=== PATIENT | male | born 1935 | race Caucasian/White ===

== ENCOUNTER → 2022-04-27 13:53 | Outpatient (BNVA) | payer MEDICARE, MEDICAID, SELFPAY | PROVIDERS: PCP Internal Medicine; Visit Provider Psychiatry & Neurology Neurology | DX: R20.0 Anesthesia of skin (principal); R20.2 Paresthesia of skin; M48.061 Spinal stenosis, lumbar region without neurogenic claudication | CPT/HCPCS: 99202 ==

== ENCOUNTER 2022-07-20 18:05 | Inpatient (IN) | payer MEDICARE, MEDICAID, SELFPAY ==
--- NOTE | ~2022-07-20 | CT_ITS ---
EXAMINATION: CT HEAD WITHOUT CONTRAST CT CERVICAL SPINE WITHOUT CONTRAST CLINICAL INFORMATION: Dizziness. Fall. COMPARISON: None available. TECHNIQUE: Contiguous axial imaging was performed from the skull base to vertex without intravenous administration of contrast. Contiguous axial imaging was performed from the upper chest through the skull base without intravenous administration of contrast. Coronal and sagittal reformats were obtained at the acquisition workstation. This CT examination was performed using dose optimization techniques as appropriate, variously including the following: *Automated exposure control. *Adjustment of mA and/or kV according to patient size (this includes techniques or standardized protocols for targeted exams where dose is matched to indication/reason for exam; i.e. extremities or head). *Use of iterative reconstruction technique. DLP: 1155 mGy-cm FINDINGS: Head: There is no evidence of acute intracranial hemorrhage or edematous territorial infarction. Mccollum-white matter differentiation is preserved. A few foci of hypoattenuation in the periventricular and deep white matter are consistent with mild microangiopathy. Proportional prominence of the ventricles and sulcal spaces without evidence of obstructive hydrocephalus. No abnormal mass effect or midline shift. No extra-axial fluid collections. No acute soft tissue or osseous abnormalities. Complete opacification of the left sphenoid air cell with hyperostotic park. Moderate polypoid mucosal thickening of the left maxillary sinus. Mild mucosal thickening of the remaining paranasal sinuses. Moderate leftward nasal septal deviation. The mastoid air cells and middle ear cavities are clear. 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 Left-sided lens extraction. Cervical Spine: The atlantooccipital and atlantoaxial articulations remain well aligned. Mild degenerative anterolisthesis of C2 on C3. Mild degenerative retrolisthesis of C3 and C4. Degenerative anterolistheses of C6-T1. No evidence of acute fracture or subluxation. Advanced degenerative disc disease at all cervical levels. The vertebral body heights are maintained. Facet and uncovertebral joint arthropathy leads to osseous encroachment on the neural foramina from C2-C6. There is no prevertebral soft tissue swelling. The thyroid gland and remaining cervical soft tissues are normal in appearance. The lung apices demonstrate no abnormalities. CT/CT cervical spine wo IV con IMPRESSION: 1. No evidence of acute intracranial hemorrhage or edematous territorial infarction. Mild underlying microangiopathy and generalized cerebral volume loss. 2. No evidence of acute fracture or traumatic subluxation of the cervical spine. Advanced multilevel degenerative spondyloarthropathy of the cervical spine.
--- NOTE | ~2022-07-20 | XR_ITS ---
EXAMINATION: XR CHEST CLINICAL INFORMATION: Dizziness and cough COMPARISON: None TECHNIQUE: 2 views of the chest were obtained. FINDINGS: Heart and pulmonary vessels appear normal. No infiltrates, effusions or worrisome lung masses are seen. Calcification adjacent to the right mid lateral chest wall may represent calcified plaque or possibly be related to old rib fracture. Degenerative changes are noted in the spine. XR/XR chest 2V IMPRESSION: No acute intrathoracic disease.
--- NOTE | ~2022-07-20 | CT_ITS ---
EXAMINATION: CT ABDOMEN AND PELVIS WITHOUT CONTRAST CLINICAL INFORMATION: Dizziness and black stools COMPARISON: Chest radiograph earlier today. Renal ultrasound 03/16/2022 CT abdomen pelvis 07/29/2020 TECHNIQUE: Multidetector volumetric imaging was performed from the superior aspect of the liver through the pubic symphysis. Sagittal and coronal reformatted images were obtained on the technologist's workstation. This CT examination was performed using dose optimization techniques as appropriate, variously including the following: *Automated exposure control *Adjustment of mA and/or kV according to patient size (this includes techniques or standardized protocols for targeted exams where dose is matched to indication/reason for exam; i.e. extremities or head) *Use of iterative reconstruction technique DLP: 583 mGy-cm FINDINGS: LUNG BASES: Large calcified granuloma noted at the right lung base laterally with an additional infrahilar right-sided calcified granuloma. No suspicious lung masses. No effusions or infiltrates. LIVER, GALLBLADDER, AND BILIARY TREE: The liver is normal in size, shape, and attenuation. No focal hepatic lesion or biliary ductal dilatation is present. The gallbladder is unremarkable with no evidence of radiopaque gallstones, gallbladder wall thickening, or obvious pericholecystic inflammatory changes. PANCREAS: Unremarkable. SPLEEN: Unremarkable. ADRENAL GLANDS: Unremarkable. KIDNEYS AND URETERS: The kidneys are normal in size, shape, and attenuation. Multiple bilateral renal masses are seen most of which represent what appear to BE cysts that are slightly hyperattenuating. Multiple peripheral fatty masses are present as well suggestive of angiomyolipomas. Compared to 07/29/2020 CT, there has been no significant interval change. Some of the perirenal masses, do not communicate with the kidneys and these are new suggestive of possible adenopathy. No hydronephrosis, hydroureter, or calculi seen. No perinephric stranding. BLADDER: Unremarkable. GASTROINTESTINAL TRACT: There are colonic diverticula present without diverticulitis The small and large bowel are otherwise unremarkable. The appendix is not seen but there is no evidence of appendicitis. ABDOMINAL WALL: No significant hernia is appreciated. LYMPH NODES: No retroperitoneal lymphadenopathy. Please see discussion above concerning perirenal soft tissue densities which do not communicate with the renal parenchyma. VASCULAR: Calcific plaque without aneurysms PELVIC VISCERA: There is marked BPH. Seminal vesicles normal. OSSEOUS STRUCTURES: Severe degenerative changes present throughout the spine. Mild grade 1 anterolisthesis L4 upon L5. No bony destructive lesions. CT/CT abdomen pelvis wo IV con IMPRESSION: 1. A cause for the patient's black stools and black stools has not been found. 2. Incidental note made of: 3. 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 4. Perirenal soft tissue densities which do not communicate with the renal parenchyma. These could represent adenopathy, slightly increased when compared to prior. 5. Marked BPH. 6. Severe degenerative changes in the spine. Fleischner guidelines were followed.
--- NOTE | 2022-07-20 19:11 | ED.GENADULT ---
HPI - General Adult General Chief complaint: General Medical Stated complaint: blackend stool,dizziness sent from urgent care Time Seen by Provider: 07/20/22 21:34 Related Data Home Medications Medication Instructions Recorded Confirmed atorvastatin 80 mg tablet 1 tab PO DAILY 07/20/22 07/20/22 isosorbide mononitrate 30 mg 1 tab PO DAILY 07/20/22 07/20/22 tablet,extended release 24 hr metoprolol succinate 25 mg 1 tab PO DAILY 07/20/22 07/20/22 tablet,extended release 24 hr metoprolol succinate 25 mg 1 tab PO DAILY 07/20/22 07/20/22 tablet,extended release 24 hr tamsulosin 0.4 mg capsule 1 cap PO DAILY 07/20/22 07/20/22 Previous Rx's Medication Instructions Recorded omeprazole 40 mg capsule,delayed 40 mg PO BID #90 caps 07/23/22 release Allergies Allergy/AdvReac Type Severity Reaction Status Date / Time No Known Allergies Allergy Verified 07/20/22 19:15 [facility] Past Medical History Medical History (Updated 07/22/22 @ 10:33 by Bridger Blackburn MD) CAD (coronary artery disease) Surgical History (Updated 07/22/22 @ 10:33 by Bridger Blackburn MD) History of knee replacement Family History Family History (Updated 07/21/22 @ 01:04 by Hattie Conley MD) Other No family history of coronary artery disease Social History Social History (Updated 07/21/22 @ 01:04 by Hattie Conley MD) Household Members: Spouse Housing: House Do you presently have visiting nurse or other home services: No Alcohol intake: never Patient Tobacco Use Status: Never used Tobacco service: No Physical Exam ED Vital Signs: BMI result Body Mass Index 29.1 Course Course Course Narrative: RME-19:12PM 82yoM c PMHx of PR with stent placement presenting to the ED c dizziness, coughing/sob x 1 week, decreased appetite and black stools x 2 days. Last week fell in drive way after he slipped on sopmething in the drive way. Denies head injury or LOC. Had right shoulder now is gone from that fall. Went to Urgent care and sent here for further evaluation treatment. Pt is on baby aspirin and Brilinta. Denies CP. Plan: COVID/RSV/flu, EKG, chest x-ray, lab and CT scan abdomen pelvis all ordered at this time. Patient stable to go back to waiting room to be evaluated in the ED. Medications Administered Discontinued Medications Generic Name Dose Route Start Last Admin Trade Name Freq PRN Reason Stop Dose Admin Al Hydroxide/Mg Hydroxide 30 ml 07/20/22 21:56 07/20/22 22:46 Magnesium Hydrox/Alum Hydrox 30 Ml Oral.Susp PO 07/20/22 21:57 30 ml ONCE ONE Administration Atorvastatin Calcium 80 mg 07/21/22 21:00 07/22/22 19:48 Atorvastatin Calcium 80 Mg Tablet PO 80 mg BEDTIME RAMILA Administration Lactated Ringer's 1,000 mls @ 100 mls/hr 07/21/22 01:15 07/22/22 19:48 Lr IVCONT Not Given .Q10H RAMILA Isosorbide Mononitrate 30 mg 07/21/22 09:00 07/23/22 09:16 Isosorbide Mononitrate 30 Mg Tab.Er.24h PO 30 mg DAILY RAMILA Administration Protocol Melatonin 6 mg 07/21/22 21:01 07/21/22 21:13 Melatonin 3 Mg Tablet PO 6 mg BEDTIME PRN Administration Insomnia Metoprolol Succinate 25 mg 07/21/22 01:45 07/23/22 09:17 Metoprolol Succinate Er 25 Mg Tab.Er.24h PO 25 mg DAILY RAMILA Administration Protocol Pantoprazole Sodium 40 mg 07/20/22 21:56 07/20/22 22:46 Pantoprazole Sodium 40 Mg/10 Ml Vial IVPUSH 07/20/22 21:57 40 mg ONCE ONE Administration Pantoprazole Sodium 40 mg 07/21/22 06:30 07/23/22 05:46 Pantoprazole Sodium 40 Mg/10 Ml Vial IVPUSH 40 mg BID@0630,1630 RAMILA Administration Sodium Chloride 3 ml 07/21/22 00:00 07/23/22 09:17 0.9 % Sodium Chloride Flush 3 Ml Syringe IVFLUSH 3 ml QSHIFT RAMILA Administration Tamsulosin HCl 0.4 mg 07/21/22 09:00 07/23/22 09:16 Tamsulosin Hcl 0.4 Mg Capsule PO 0.4 mg DAILY RAMILA Administration Trazodone HCl 50 mg 07/21/22 00:45 07/21/22 01:14 Trazodone Hcl 50 Mg Tablet PO 07/21/22 00:46 50 mg ONCE ONE Administration Medical Decision Making Lab Data 07/23/22 06:00 07/21/22 07:00 Labs: Lab Results 07/20/22 07/20/22 07/20/22 Range/Units 19:37 19:37 19:37 WBC 12.4 H (4.8-10.8) X10*3/uL RBC 4.27 L (4.60-5.80) X10*6/uL Hgb 11.5 L (14.0-18.0) g/dl Hct 36.2 L (42.0-52.0) % MCV 84.8 (80.0-98.0) fL MCH 26.9 L (27.0-33.0) pg MCHC 31.8 (31.0-36.0) g/dl RDW 14.8 (11.0-16.0) % Plt Count 319 (160-400) X10*3/uL MPV 11.3 (9.4-12.4) fL Immature Gran % (Auto) 3.6 H (0.0-0.4) % Neut % (Auto) 71.1 (45-73) % Lymph % (Auto) 12.4 L (20-40) % [place] % (Auto) 11.8 H (2-11) % Eos % (Auto) 0.8 (0-4) % Baso % (Auto) 0.3 (0-2) % Lymph # (Auto) 1.5 (1.2-4.9) X10*3/uL [place] # (Auto) 1.5 H (0.1-1.2) X10*3/uL Eos # (Auto) 0.1 (0.0-0.4) X10*3/uL Baso # (Auto) 0.0 (0.0-0.2) X10*3/uL Abs Immat Gran (auto) 0.44 H (0.00-0.03) X10*3/uL Absolute Neuts (auto) 8.8 H (2.0-8.3) x10*3/uL Absolute Nucleated RBC 0.000 (0.0-0.012) X10*3/uL Nucleated RBC % (auto) 0.0 (0.0-0.2) /100WBC PT 12.6 (10.0-13.1) SEC INR 1.1 (0.9-1.1) Sodium 138 (135-145) mmol/L Potassium 4.4 (3.3-5.1) mmol/L Chloride 106 (96-108) mmol/L Carbon Dioxide 22 (22-29) mmol/L Anion Gap 14 (12-20) BUN 63 H (9-16) mg/dL Creatinine 1.37 (0.5-1.4) mg/dL Estim Creat Clear Calc 37.5 Estimated GFR 49 Random Glucose 113 (60-115) mg/dL Calcium 9.4 (8.4-10.2) mg/dL Magnesium 1.8 (1.6-2.6) mg/dL Total Bilirubin 0.8 (0.0-1.0) mg/dL AST 20 (5-37) U/L ALT 24 (0-40) U/L Alkaline Phosphatase 69 (39-117) U/L Troponin I High Sens (<3.5-35.0) ng/L Total Protein 6.7 (6.5-8.0) g/dL Albumin 3.5 (3.5-5.0) g/dL Urine Color Urine Appearance Urine pH (5.0-9.0) Ur Specific [place] (1.005-1.025) Urine Protein (Neg-Trace) mg/dL Urine Glucose (UA) (Negative) mg/dL Urine Ketones (Negative) mg/dL Urine Blood (Negative) Urine Nitrite (Negative) Ur Leukocyte Esterase (Negative) Stool Occult Blood (NEGATIVE) Influenza Type A (PCR) (Negative) Influenza Type B (PCR) (Negative) RSV RNA Qual (PCR) (Negative) SARS-CoV-2 RNA (RT-PCR) (Negative) Blood Type Antibody Screen Crossmatch 07/20/22 07/20/22 07/20/22 Range/Units 19:37 19:37 19:37 WBC (4.8-10.8) X10*3/uL RBC (4.60-5.80) X10*6/uL Hgb (14.0-18.0) g/dl Hct (42.0-52.0) % MCV (80.0-98.0) fL MCH (27.0-33.0) pg MCHC (31.0-36.0) g/dl RDW (11.0-16.0) % Plt Count (160-400) X10*3/uL MPV (9.4-12.4) fL Immature Gran % (Auto) (0.0-0.4) % Neut % (Auto) (45-73) % Lymph % (Auto) (20-40) % [place] % (Auto) (2-11) % Eos % (Auto) (0-4) % Baso % (Auto) (0-2) % Lymph # (Auto) (1.2-4.9) X10*3/uL [place] # (Auto) (0.1-1.2) X10*3/uL Eos # (Auto) (0.0-0.4) X10*3/uL Baso # (Auto) (0.0-0.2) X10*3/uL Abs Immat Gran (auto) (0.00-0.03) X10*3/uL Absolute Neuts (auto) (2.0-8.3) x10*3/uL Absolute Nucleated RBC (0.0-0.012) X10*3/uL Nucleated RBC % (auto) (0.0-0.2) /100WBC PT (10.0-13.1) SEC INR (0.9-1.1) Sodium (135-145) mmol/L Potassium (3.3-5.1) mmol/L Chloride (96-108) mmol/L Carbon Dioxide (22-29) mmol/L Anion Gap (12-20) BUN (9-16) mg/dL Creatinine (0.5-1.4) mg/dL Estim Creat Clear Calc Estimated GFR Random Glucose (60-115) mg/dL Calcium (8.4-10.2) mg/dL Magnesium (1.6-2.6) mg/dL Total Bilirubin (0.0-1.0) mg/dL AST (5-37) U/L ALT (0-40) U/L Alkaline Phosphatase (39-117) U/L Troponin I High Sens 7.0 (<3.5-35.0) ng/L Total Protein (6.5-8.0) g/dL Albumin (3.5-5.0) g/dL Urine Color Yellow Urine Appearance Clear Urine pH 5.5 (5.0-9.0) Ur Specific [place] 1.020 (1.005-1.025) Urine Protein Negative (Neg-Trace) mg/dL Urine Glucose (UA) Negative (Negative) mg/dL Urine Ketones Negative (Negative) mg/dL Urine Blood Negative (Negative) Urine Nitrite Negative (Negative) Ur Leukocyte Esterase Negative (Negative) Stool Occult Blood (NEGATIVE) Influenza Type A (PCR) NEGATIVE (Negative) Influenza Type B (PCR) NEGATIVE (Negative) RSV RNA Qual (PCR) NEGATIVE (Negative) SARS-CoV-2 RNA (RT-PCR) POSITIVE A (Negative) Blood Type Antibody Screen Crossmatch 07/20/22 07/20/22 Range/Units 21:47 22:48 WBC (4.8-10.8) X10*3/uL RBC (4.60-5.80) X10*6/uL Hgb (14.0-18.0) g/dl Hct (42.0-52.0) % MCV (80.0-98.0) fL MCH (27.0-33.0) pg MCHC (31.0-36.0) g/dl RDW (11.0-16.0) % Plt Count (160-400) X10*3/uL MPV (9.4-12.4) fL Immature Gran % (Auto) (0.0-0.4) % Neut % (Auto) (45-73) % Lymph % (Auto) (20-40) % [place] % (Auto) (2-11) % Eos % (Auto) (0-4) % Baso % (Auto) (0-2) % Lymph # (Auto) (1.2-4.9) X10*3/uL [place] # (Auto) (0.1-1.2) X10*3/uL Eos # (Auto) (0.0-0.4) X10*3/uL Baso # (Auto) (0.0-0.2) X10*3/uL Abs Immat Gran (auto) (0.00-0.03) X10*3/uL Absolute Neuts (auto) (2.0-8.3) x10*3/uL Absolute Nucleated RBC (0.0-0.012) X10*3/uL Nucleated RBC % (auto) (0.0-0.2) /100WBC PT (10.0-13.1) SEC INR (0.9-1.1) Sodium (135-145) mmol/L Potassium (3.3-5.1) mmol/L Chloride (96-108) mmol/L Carbon Dioxide (22-29) mmol/L Anion Gap (12-20) BUN (9-16) mg/dL Creatinine (0.5-1.4) mg/dL Estim Creat Clear Calc Estimated GFR Random Glucose (60-115) mg/dL Calcium (8.4-10.2) mg/dL Magnesium (1.6-2.6) mg/dL Total Bilirubin (0.0-1.0) mg/dL AST (5-37) U/L ALT (0-40) U/L Alkaline Phosphatase (39-117) U/L Troponin I High Sens (<3.5-35.0) ng/L Total Protein (6.5-8.0) g/dL Albumin (3.5-5.0) g/dL Urine Color Urine Appearance Urine pH (5.0-9.0) Ur Specific [place] (1.005-1.025) Urine Protein (Neg-Trace) mg/dL Urine Glucose (UA) (Negative) mg/dL Urine Ketones (Negative) mg/dL Urine Blood (Negative) Urine Nitrite (Negative) Ur Leukocyte Esterase (Negative) Stool Occult Blood POSITIVE (NEGATIVE) Influenza Type A (PCR) (Negative) Influenza Type B (PCR) (Negative) RSV RNA Qual (PCR) (Negative) SARS-CoV-2 RNA (RT-PCR) (Negative) Blood Type O Positive Antibody Screen NEGATIVE Crossmatch See Detail Discharge Plan Discharge Clinical Impression: Melena, Dizziness, COVID-19 virus infection Patient Disposition: Admitted As Inpatient Discharge Date/Time: 07/21/22 17:51
[2022-07-20 19:12] VITALS: BP 134/54; PULSE 99; RESP 16; TEMP 36.5; O2SAT 96; BMI 29.1
--- NOTE | 2022-07-20 19:15 | ECG_ITS ---
Test Reason : DIZZINESS Blood Pressure : / mmHG Vent. Rate : 097 BPM Atrial Rate : 097 BPM P-R Int : 160 ms QRS Dur : 084 ms QT Int : 356 ms P-R-T Axes : 034 040 039 degrees QTc Int : 452 ms Normal sinus rhythm cannot exclude old inferior infarct Abnormal ECG No previous ECGs available Referred By: Yasmine Rebolledo Electronically Signed By:NANNETTE DELACRUZ
[2022-07-20 19:44] LABS: MANUAL DIFF FLAG NO
[2022-07-20 19:46] LABS: Appearance Urine Clear; Color Urine Yellow; Glucose Urine UA Negative (Negative); Leukocyte Esterase Urine Negative (Negative); Nitrite Urine Negative (Negative); PH 5.5 (5.0-9.0); Urine Blood Negative (Negative); Urine Ketones Negative (Negative); Urine Protein Negative (Neg-Trace)
[2022-07-20 19:50] LABS: INTERNATIONAL NORM RATIO 1.1 (0.9-1.1); Prothrombin Time 12.6 SEC (10.0-13.1)
[2022-07-20 19:56] LABS: Basophils Percent Auto 0.3 % (0-2); Eosinophils Absolute Auto 0.1 X10*3/uL (0.0-0.4); Eosinophils Percent Auto 0.8 % (0-4); Hematocrit 36.2 % (42.0-52.0); Hemoglobin 11.5 g/dl (14.0-18.0); Imm Gran Abs Auto 0.44 X10*3/uL (0.00-0.03); Imm Gran Pct Auto 3.6 % (0.0-0.4); Lymphocytes Absolute Auto 1.5 X10*3/uL (1.2-4.9); Lymphocytes Percent Auto 12.4 % (20-40); Mean Corpuscular HGB Conc 31.8 g/dl (31.0-36.0); Mean Corpuscular Hemoglobin 26.9 pg (27.0-33.0); Mean Corpuscular Volume 84.8 fL (80.0-98.0); Mean Platelet Volume 11.3 fL (9.4-12.4); Monocytes Absolute Auto 1.5 X10*3/uL (0.1-1.2); Monocytes Percent Auto 11.8 % (2-11); Neutrophils Absolute Auto 8.8 x10*3/uL (2.0-8.3); Neutrophils Percent Auto 71.1 % (45-73); Platelet Count 319 X10*3/uL (160-400); Red Blood Count 4.27 X10*6/uL (4.60-5.80); Red Cell Distribution Width 14.8 % (11.0-16.0); White Blood Count 12.4 X10*3/uL (4.8-10.8)
[2022-07-20 19:59] LABS: Alanine Aminotransferase 24 U/L (0-40); Albumin Level 3.5 g/dL (3.5-5.0); Alkaline Phosphatase 69 U/L (39-117); Anion Gap 14 (12-20); Aspartate Amino Transferase 20 U/L (5-37); Bilirubin Total 0.8 mg/dL (0.0-1.0); Blood Urea Nitrogen 63 mg/dL (9-16); Calcium 9.4 mg/dL (8.4-10.2); Carbon Dioxide 22 mmol/L (22-29); Chloride 106 mmol/L (96-108); Creatinine Clr Calc Pharmacy 37.5; Estimated Glomerular Filt Rate 49; Glucose Random 113 mg/dL (60-115); Magnesium 1.8 mg/dL (1.6-2.6); Potassium 4.4 mmol/L (3.3-5.1); Sodium 138 mmol/L (135-145); Total Protein 6.7 g/dL (6.5-8.0)
[2022-07-20 20:21] LABS: Influenza A PCR NEGATIVE (Negative); Influenza B PCR NEGATIVE (Negative); Resp Syncy Virus RNA Qual PCR NEGATIVE (Negative); SARS COV2 PCR INHOUSE POSITIVE (Negative)
[2022-07-20 20:49] VITALS: BP 134/51; PULSE 78; RESP 18; TEMP 36.7; O2SAT 97
--- NOTE | 2022-07-20 21:47 | ED_ITS ---
HPI - General Adult General Chief complaint: General Medical Stated complaint: blackend stool,dizziness sent from urgent care Time Seen by Provider: 07/20/22 21:34 Source: patient and family Mode of arrival: ambulatory Limitations: no limitations History of Present Illness HPI narrative: 86-year-old male came in for evaluation of black stool and feeling dizzy. For the past 2 days patient notices that he is been feeling dizzy with near syncopal episode but never had a full syncopal episode, patient also noted that his stool is black in color, declined any abdominal pain, no recent use of NSAIDs, patient is on Brilinta and aspirin for history of previous stool. Patient overall feeling generalized weakness and body ache, no sick contacts exposure. patient fell 3 weeks ago had his head in complaining of neck pain and mild constant headache. Related Data Allergies Allergy/AdvReac Type Severity Reaction Status Date / Time No Known Allergies Allergy Verified 07/20/22 19:15 Review of Systems Review of Systems: All other systems are reviewed and are negative Constitutional: Reports as per HPI and Reports no additional constitutional complaints Eyes: Reports as per HPI and Reports no additional eye complaints Reports system reviewed and no additional complaints, except as documented Cardiovascular: Reports as per HPI and Reports no additional cardiovascular complaints Respiratory: Reports as per HPI and Reports no additional respiratory complaints Gastrointestinal: Reports as per HPI and Reports no additional gastrointestinal complaints Genitourinary: Reports no additional female genitourinary complaints Musculoskeletal: Reports no additional musculoskeletal complaints Skin/Breast: Reports system reviewed and no additional complaints, except as docu Psychiatric: Reports no additional psychiatric complaints Endocrine: Reports no additional endocrine complaints Hematologic/Lymphatic: Reports no additional hematologic/lymphatic complaints Allergic/Immunologic: Reports no additional allergic/immunologic complaints Reports system reviewed and no additional complaints, except as documented and Reports Abnormal speech present [facility] Social History Social History Advance Directives: No Advance Directives Information Provided: No Physical Exam ED Vital Signs: Vital Signs - 24 hr 07/20/22 19:12 07/20/22 20:49 Temperature 97.7 F 98.0 F Pulse Rate 99 78 Respiratory Rate 16 18 Blood Pressure 134/54 L 134/51 L Pulse Oximetry 96 97 Oxygen Delivery Method Room Air Room Air BMI result Body Mass Index 29.1 vital signs have been reviewed as appeared to be correct. Blood pressure normal. Heart rate normal. Respiration rate normal. Temperature normal. Oxygen saturation normal. Appearance: Alert. Oriented X3. No acute distress. Head: Normal external exam. Normocephalic. Atraumatic. No Jacobsen signs noted. No raccoon eyes noted Eyes: PERRLA. EOMI. Conjunctiva and sclera normal. Eyelids normal. ENT: TM's Normal. Pharynx normal. Uvula midline. Moist mucous membranes. No trismus noted. No drooling noted. No muffled voice noted. Neck: Normal inspection. Neck supple. FROM. No adenopathy. Thyroid Normal. No meningeal signs. No neck mass noted. CVS: Normal heart rate and rhythm. Heart sound normal. No murmurs noted. Pulses normal throughout. Respiratory: No respiratory distress. Painless inspiration. Breath sounds normal. No wheezes/rales/rhonchi noted. Chest nontender. No accessory muscle usage noted or decreased air movement noted. Abdomen: Soft and nontender. Bowel sounds normal in all 4 quadrants. No distention noted. No organomegaly noted. No visible injury noted. Rectal exam: No external or internal hemorrhoids, good rectal tone, black stool melanotic stool positive for blood. Back: No CVA tenderness. Full range of motion noted. Skin: Skin warm and dry. Normal skin color. Normal skin turgor. No rashes/lesions/lacerations noted. Extremities: No lower extremity edema. Extremities exhibit normal range of motion. Extremities nontender. Neuro: Oriented X 3. Cranial nerve exam: II-XII are grossly intact No motor deficit. No sensory deficit. Reflexes normal. Course Course Course Narrative: 86-year-old male came in for dizziness and a near syncopal episode with GI bleeding and melena patient was stable H&H will admit for further GI evaluation. Patient also is positive for COVID will isolate the patient. Three weeks ago with Trauma negative head/ C-spine CT. Medical Decision Making Differential Diagnosis Differential Diagnoses: The differential diagnosis associated with the presentation includes ( GI bleed, coagulopathy, intracranial bleed, C-spine injury.) Admission/Observation Consideration of admission/observation: Escalation of care including admission/observation considered Consult Healthcare Provider Management of the patient was discussed with: Hospitalist Lab Data MDM Lab Attestation statement: I reviewed the patient's lab results. Result Diagrams: 07/20/22 19:37 07/20/22 19:37 Labs: Lab Results 07/20/22 07/20/22 07/20/22 Range/Units 19:37 19:37 19:37 WBC 12.4 H (4.8-10.8) X10*3/uL RBC 4.27 L (4.60-5.80) X10*6/uL Hgb 11.5 L (14.0-18.0) g/dl Hct 36.2 L (42.0-52.0) % MCV 84.8 (80.0-98.0) fL MCH 26.9 L (27.0-33.0) pg MCHC 31.8 (31.0-36.0) g/dl RDW 14.8 (11.0-16.0) % Plt Count 319 (160-400) X10*3/uL MPV 11.3 (9.4-12.4) fL Immature Gran % (Auto) 3.6 H (0.0-0.4) % Neut % (Auto) 71.1 (45-73) % Lymph % (Auto) 12.4 L (20-40) % [place] % (Auto) 11.8 H (2-11) % Eos % (Auto) 0.8 (0-4) % Baso % (Auto) 0.3 (0-2) % Lymph # (Auto) 1.5 (1.2-4.9) X10*3/uL [place] # (Auto) 1.5 H (0.1-1.2) X10*3/uL Eos # (Auto) 0.1 (0.0-0.4) X10*3/uL Baso # (Auto) 0.0 (0.0-0.2) X10*3/uL Abs Immat Gran (auto) 0.44 H (0.00-0.03) X10*3/uL Absolute Neuts (auto) 8.8 H (2.0-8.3) x10*3/uL Absolute Nucleated RBC 0.000 (0.0-0.012) X10*3/uL Nucleated RBC % (auto) 0.0 (0.0-0.2) /100WBC PT 12.6 (10.0-13.1) SEC INR 1.1 (0.9-1.1) Sodium 138 (135-145) mmol/L Potassium 4.4 (3.3-5.1) mmol/L Chloride 106 (96-108) mmol/L Carbon Dioxide 22 (22-29) mmol/L Anion Gap 14 (12-20) BUN 63 H (9-16) mg/dL Creatinine 1.37 (0.5-1.4) mg/dL Estim Creat Clear Calc 37.5 Estimated GFR 49 Random Glucose 113 (60-115) mg/dL Calcium 9.4 (8.4-10.2) mg/dL Magnesium 1.8 (1.6-2.6) mg/dL Total Bilirubin 0.8 (0.0-1.0) mg/dL AST 20 (5-37) U/L ALT 24 (0-40) U/L Alkaline Phosphatase 69 (39-117) U/L Troponin I High Sens (<3.5-35.0) ng/L Total Protein 6.7 (6.5-8.0) g/dL Albumin 3.5 (3.5-5.0) g/dL Urine Color Urine Appearance Urine pH (5.0-9.0) Ur Specific [place] (1.005-1.025) Urine Protein (Neg-Trace) mg/dL Urine Glucose (UA) (Negative) mg/dL Urine Ketones (Negative) mg/dL Urine Blood (Negative) Urine Nitrite (Negative) Ur Leukocyte Esterase (Negative) Influenza Type A (PCR) (Negative) Influenza Type B (PCR) (Negative) RSV RNA Qual (PCR) (Negative) SARS-CoV-2 RNA (RT-PCR) (Negative) 07/20/22 07/20/22 07/20/22 Range/Units 19:37 19:37 19:37 WBC (4.8-10.8) X10*3/uL RBC (4.60-5.80) X10*6/uL Hgb (14.0-18.0) g/dl Hct (42.0-52.0) % MCV (80.0-98.0) fL MCH (27.0-33.0) pg MCHC (31.0-36.0) g/dl RDW (11.0-16.0) % Plt Count (160-400) X10*3/uL MPV (9.4-12.4) fL Immature Gran % (Auto) (0.0-0.4) % Neut % (Auto) (45-73) % Lymph % (Auto) (20-40) % [place] % (Auto) (2-11) % Eos % (Auto) (0-4) % Baso % (Auto) (0-2) % Lymph # (Auto) (1.2-4.9) X10*3/uL [place] # (Auto) (0.1-1.2) X10*3/uL Eos # (Auto) (0.0-0.4) X10*3/uL Baso # (Auto) (0.0-0.2) X10*3/uL Abs Immat Gran (auto) (0.00-0.03) X10*3/uL Absolute Neuts (auto) (2.0-8.3) x10*3/uL Absolute Nucleated RBC (0.0-0.012) X10*3/uL Nucleated RBC % (auto) (0.0-0.2) /100WBC PT (10.0-13.1) SEC INR (0.9-1.1) Sodium (135-145) mmol/L Potassium (3.3-5.1) mmol/L Chloride (96-108) mmol/L Carbon Dioxide (22-29) mmol/L Anion Gap (12-20) BUN (9-16) mg/dL Creatinine (0.5-1.4) mg/dL Estim Creat Clear Calc Estimated GFR Random Glucose (60-115) mg/dL Calcium (8.4-10.2) mg/dL Magnesium (1.6-2.6) mg/dL Total Bilirubin (0.0-1.0) mg/dL AST (5-37) U/L ALT (0-40) U/L Alkaline Phosphatase (39-117) U/L Troponin I High Sens 7.0 (<3.5-35.0) ng/L Total Protein (6.5-8.0) g/dL Albumin (3.5-5.0) g/dL Urine Color Yellow Urine Appearance Clear Urine pH 5.5 (5.0-9.0) Ur Specific [place] 1.020 (1.005-1.025) Urine Protein Negative (Neg-Trace) mg/dL Urine Glucose (UA) Negative (Negative) mg/dL Urine Ketones Negative (Negative) mg/dL Urine Blood Negative (Negative) Urine Nitrite Negative (Negative) Ur Leukocyte Esterase Negative (Negative) Influenza Type A (PCR) NEGATIVE (Negative) Influenza Type B (PCR) NEGATIVE (Negative) RSV RNA Qual (PCR) NEGATIVE (Negative) SARS-CoV-2 RNA (RT-PCR) POSITIVE A (Negative) Independent Interpretation I performed an independent interpretation of an: EKG ( normal sinus rhythm at 97 beats per minutes, normal intervals, no ST-T changes.), Plain X-Ray ( No acute intrathoracic pathology.) and CT Scan ( Head CT /Cervical CT: No acute intra cranial pathology no acute cervical spine injury.) Critical Care Time Critical Care Time Critical Care Time: Yes Total Critical Care Time: 60 Attestation: I spent 60 minutes providing critical care service to the patient, this including time spent at the bedside to evaluate the patient, reassess the patient, monitoring vital signs, review labs, and radiographic studies, counseling the patient/family, discussing the case with consultants, disposition the patient. Discharge Plan Discharge Clinical Impression: Melena, Dizziness, COVID-19 virus infection Patient Disposition: Admitted As Inpatient
[2022-07-20 21:53] LABS: OBS Int Ctl Valid YES; OBS1 POSITIVE (NEGATIVE)
[2022-07-20] MEDS: Pantoprazole Sodium 40 MG/10 ML VIAL IVPUSH (22:46)
[2022-07-20] MEDS: Magnesium Hydrox/Alum Hydrox 30 ML ORAL.SUSP PO (22:46)
--- NOTE | 2022-07-20 22:50 | PHA.MEDREC ---
Pharmacy Consult ? Medication Reconciliation Pharmacy has completed the medication reconciliation.
--- NOTE | 2022-07-20 23:15 | PM.IMHP ---
History of Present Illness Date of Service: 07/20/22 Chief Complaint: melena 86-year-old male with past medical history of CAD recently treated with stents in October of 2021, on aspirin and Brilinta,presents to the hospital with multiple episodes of melena. Patient reports that for the past few days he has been feeling dizzy, feeling lightheaded on his feet, losing his balance, Has loss of appetite, has burning sensation in the stomach,and noticed multiple episodes of black stools. patient reports a productive cough with no shortness of breath, he has no abdominal pain, no nausea or vomiting, no diarrhea, no urinary symptoms and no lower extremity edema. She reports chronic chest pain that has not been worse recently. on arrival to the ED patient hemodynamically stable with no significant abnormal vitals Labs are significant for WBC count of 12.4, hemoglobin of 11.5, hematocrit 36.2, BUN of 63, creatinine of 1.37, UA negative, stool occult blood positive, COVID-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, perirenal soft tissue densities which do not communicate with the renal parenchyma, this could represent adenopathy BPH, patient will be admitted for further management Review of Systems Review of Systems: Yes all other systems are reviewed and are negative [facility] Medical History (Updated 07/21/22 @ 01:07 by Hattie Conley MD) CAD (coronary artery disease) Family History (Updated 07/21/22 @ 01:04 by Hattie Conley MD) Other No family history of coronary artery disease Surgical History (Updated 07/21/22 @ 01:04 by Hattie Conley MD) History of knee replacement Social History (Updated 07/21/22 @ 01:04 by Hattie Conley MD) Alcohol intake: never Patient Tobacco Use Status: Never used Tobacco Smoked in Last 30 Days: No Use of substances other than those prescribed or required for medical reasons: No Advance Directives: No Advance Directives Information Provided: No Meds Allergies Allergy/AdvReac Type Severity Reaction Status Date / Time No Known Allergies Allergy Verified 07/20/22 19:15 Active Medications: Current Medications Acetaminophen (Acetaminophen 325 Mg Tablet) 650 mg PO Q6H PRN PRN Reason: Pain, Mild (Pain Scale 1-3) Docusate Sodium (Docusate Sodium 100 Mg Capsule) 100 mg PO DAILY PRN PRN Reason: Constipation Ondansetron HCl (Ondansetron Hcl 4 Mg/2 Ml Vial) 4 mg IVPUSH Q8H PRN PRN Reason: Nausea and Vomiting Pantoprazole Sodium (Pantoprazole Sodium 40 Mg/10 Ml Vial) 40 mg IVPUSH BID@0630,1630 [facility] Sodium Chloride (0.9 % Sodium Chloride Flush 3 Ml Syringe) 3 ml IVFLUSH QSHIFT [facility] Home Medications Medication Instructions Recorded Confirmed Last Taken Type atorvastatin 80 mg tablet 1 tab PO DAILY 07/20/22 07/20/22 Unknown History isosorbide mononitrate 30 mg 1 tab PO DAILY 07/20/22 07/20/22 Unknown History tablet,extended release 24 hr metoprolol succinate 25 mg 1 tab PO DAILY 07/20/22 07/20/22 Unknown History tablet,extended release 24 hr metoprolol succinate 25 mg 1 tab PO DAILY 07/20/22 07/20/22 Unknown History tablet,extended release 24 hr tamsulosin 0.4 mg capsule 1 cap PO DAILY 07/20/22 07/20/22 Unknown History ticagrelor 90 mg tablet (Brilinta) 1 tab PO BID 07/20/22 07/20/22 Unknown History Physical Exam Vital Signs and Narrative: Vital Signs: Last Vital Signs Temp 98.0 F 07/20/22 20:49 Pulse 78 07/20/22 20:49 Resp 18 07/20/22 20:49 BP 134/51 L 07/20/22 20:49 Pulse Ox 97 07/20/22 20:49 O2 Del Method 07/20/22 20:49 BMI result Body Mass Index 29.1 Const: General: cooperative and no acute distress Orientation/consciousness: patient oriented x3 Eyes: General: appearance normal, both eyes and all related structures Resp: Effort & Inspection: normal respiratory effort Auscultation: clear to auscultation bilaterally Cardio: Rate: regular rate Rhythm: regular rhythm GI: Other: abdomen is soft, nontender, no rebound or guarding Palpation (GI): Soft to palpation Auscultation: normal bowel sounds Skin: General skin exam: no rashes or lesions noted Neuro: General: patient oriented x3 Cognition (Neuro): normal cognition Extrem: General: Yes normal to inspection and Yes no pedal edema Results Labs CBC and Chem 7: 01/02/23 19:37 07/20/22 19:37 Labs: Laboratory Results - last 24 hr 07/20/22 07/20/22 07/20/22 19:37 19:37 19:37 MCV 84.8 MCH 26.9 L MCHC 31.8 RDW 14.8 Plt Count 319 MPV 11.3 Immature Gran % (Auto) 3.6 H Neut % (Auto) 71.1 Lymph % (Auto) 12.4 L [place] % (Auto) 11.8 H Eos % (Auto) 0.8 Baso % (Auto) 0.3 Lymph # (Auto) 1.5 [place] # (Auto) 1.5 H Eos # (Auto) 0.1 Baso # (Auto) 0.0 Abs Immat Gran (auto) 0.44 H Absolute Neuts (auto) 8.8 H Absolute Nucleated RBC 0.000 Nucleated RBC % (auto) 0.0 PT 12.6 INR 1.1 Anion Gap 14 Estim Creat Clear Calc 37.5 Estimated GFR 49 Random Glucose 113 Calcium 9.4 Magnesium 1.8 Total Bilirubin 0.8 AST 20 ALT 24 Alkaline Phosphatase 69 Troponin I High Sens Total Protein 6.7 Albumin 3.5 Urine Color Urine Appearance Urine pH Ur Specific [place] Urine Protein Urine Glucose (UA) Urine Ketones Urine Blood Urine Nitrite Ur Leukocyte Esterase Stool Occult Blood Influenza Type A (PCR) Influenza Type B (PCR) RSV RNA Qual (PCR) SARS-CoV-2 RNA (RT-PCR) 07/20/22 07/20/22 07/20/22 19:37 19:37 19:37 MCV MCH MCHC RDW Plt Count MPV Immature Gran % (Auto) Neut % (Auto) Lymph % (Auto) [place] % (Auto) Eos % (Auto) Baso % (Auto) Lymph # (Auto) [place] # (Auto) Eos # (Auto) Baso # (Auto) Abs Immat Gran (auto) Absolute Neuts (auto) Absolute Nucleated RBC Nucleated RBC % (auto) PT INR Anion Gap Estim Creat Clear Calc Estimated GFR Random Glucose Calcium Magnesium Total Bilirubin AST ALT Alkaline Phosphatase Troponin I High Sens 7.0 Total Protein Albumin Urine Color Yellow Urine Appearance Clear Urine pH 5.5 Ur Specific [place] 1.020 Urine Protein Negative Urine Glucose (UA) Negative Urine Ketones Negative Urine Blood Negative Urine Nitrite Negative Ur Leukocyte Esterase Negative Stool Occult Blood Influenza Type A (PCR) NEGATIVE Influenza Type B (PCR) NEGATIVE RSV RNA Qual (PCR) NEGATIVE SARS-CoV-2 RNA (RT-PCR) POSITIVE A 07/20/22 21:47 MCV MCH MCHC RDW Plt Count MPV Immature Gran % (Auto) Neut % (Auto) Lymph % (Auto) [place] % (Auto) Eos % (Auto) Baso % (Auto) Lymph # (Auto) [place] # (Auto) Eos # (Auto) Baso # (Auto) Abs Immat Gran (auto) Absolute Neuts (auto) Absolute Nucleated RBC Nucleated RBC % (auto) PT INR Anion Gap Estim Creat Clear Calc Estimated GFR Random Glucose Calcium Magnesium Total Bilirubin AST ALT Alkaline Phosphatase Troponin I High Sens Total Protein Albumin Urine Color Urine Appearance Urine pH Ur Specific [place] Urine Protein Urine Glucose (UA) Urine Ketones Urine Blood Urine Nitrite Ur Leukocyte Esterase Stool Occult Blood POSITIVE Influenza Type A (PCR) Influenza Type B (PCR) RSV RNA Qual (PCR) SARS-CoV-2 RNA (RT-PCR) Imaging Radiologist's Impressions: Impressions Cervical Spine CT 07/20/22 19:50 IMPRESSION: 1. No evidence of acute intracranial hemorrhage or edematous territorial infarction. Mild underlying microangiopathy and generalized cerebral volume loss. 2. No evidence of acute fracture or traumatic subluxation of the cervical spine. Advanced multilevel degenerative spondyloarthropathy of the cervical spine. Head CT 07/20/22 19:50 IMPRESSION: 1. No evidence of acute intracranial hemorrhage or edematous territorial infarction. Mild underlying microangiopathy and generalized cerebral volume loss. 2. No evidence of acute fracture or traumatic subluxation of the cervical spine. Advanced multilevel degenerative spondyloarthropathy of the cervical spine. Assessment and Plan (1) Melena: Status: Acute (2) Dizziness: Status: Acute (3) COVID-19 virus infection: Status: Acute (4) Prerenal azotemia: Status: Acute (5) Normocytic anemia: Status: Acute Plan 86-year-old male with past medical history of CAD presents to the hospital with complaints of melena found to have positive stool occult as well as COVID-19 infection # melena - patient on Brilinta and aspirin for history of cardiac stent - complaining of burning in the epigastric region - at this time hemodynamically stable, stable hemoglobin- no previous for comparison - hold aspirin, Brilinta - PPI IV b.i.d. - GI consult to # history of CAD - reports chronic chest pain no changes - troponin negative - continue Imdur - given patient's melena will hold aspirin and Brilinta, cardiology consulted for further guidance # dizziness - likely multifactorial in the setting of poor oral intake as well as COVID-19 infection and anemia - monitor # COVID-19 infection - no hypoxia - monitor respiratory status # prerenal azotemia - acute - likely secondary to dehydration - will treat with IV fluids - follow BMP DVT prophylaxis: SCDs given patient's requirement for further workup of melena in the setting of history of coronary artery disease patient will require [facility] to [facility] inpatient hospital stay for further management and monitor Time Spent With Patient Time: Total time managing care of this patient today ____ minutes. Quality Stroke Does the patient have a stroke diagnosis?: No VTE Prior VTE?: No VTE Risk Level:: Medical - moderate - high VTE Device Contraindication: N/A - Device Ordered VTE Drug Contraindication: Treatment Not Indicated
[2022-07-20 23:30] VITALS: BP 119/57; PULSE 106; RESP 22; TEMP 37; O2SAT 96
[2022-07-21] VITALS (12 sets, daily range): BP systolic 98–135; BP diastolic 38–98; PULSE 83–95; RESP 14–26; TEMP 36.1–36.9; O2SAT 93–98
[2022-07-21] MEDS: 0.9 % Sodium Chloride Flush 3 ML SYRINGE IVFLUSH ×3 (01:14→21:05)
[2022-07-21] MEDS: traZODone HCL 50 MG TABLET PO (01:14)
[2022-07-21] MEDS: Lactated Ringers 1,000 ML 100 ML IVCONT ×3 (01:52→21:14)
[2022-07-21] MEDS: Metoprolol Succinate ER 25 MG TAB.ER.24H PO (01:52)
--- NOTE | 2022-07-21 02:37 | MHC.EDTECH ---
pt is resting quietly he is aware he is NPO nothing to drink, he has the urinal if he needs to void vitals taken
[2022-07-21 04:12] LABS: Alanine Aminotransferase 21 U/L (0-40); Albumin Level 3.2 g/dL (3.5-5.0); Alkaline Phosphatase 64 U/L (39-117); Anion Gap 13 (12-20); Aspartate Amino Transferase 18 U/L (5-37); Bilirubin Total 0.8 mg/dL (0.0-1.0); Blood Urea Nitrogen 66 mg/dL (9-16); Carbon Dioxide 21 mmol/L (22-29); Chloride 108 mmol/L (96-108); Creatinine Clr Calc Pharmacy 42.9; Estimated Glomerular Filt Rate 57; Glucose Random 127 mg/dL (60-115); Sodium 138 mmol/L (135-145); Total Protein 6.1 g/dL (6.5-8.0)
[2022-07-21] MEDS: Pantoprazole Sodium 40 MG/10 ML VIAL IVPUSH (05:52)
--- NOTE | 2022-07-21 07:39 | PC.NURSE ---
Patient resting comfortably no distress noted easily aroused continues on covid precautions. IV fluid infusing with no ill effect no distress noted. AOx 4 neuros intact no facial droop deviation of tongue or drift noted. Speaks in clear tones denies chest or abdominal pain will CTM.
[2022-07-21 07:51] LABS: Anion Gap 12 (12-20); Blood Urea Nitrogen 64 mg/dL (9-16); Calcium 8.6 mg/dL (8.4-10.2); Carbon Dioxide 22 mmol/L (22-29); Chloride 110 mmol/L (96-108); Estimated Glomerular Filt Rate 51; Glucose Random 108 mg/dL (60-115); Potassium 4.1 mmol/L (3.3-5.1); Sodium 140 mmol/L (135-145)
--- NOTE | 2022-07-21 08:44 | P.PNIM_ITS ---
Subjective Subjective Date of Service: 07/21/22 Interval History: Seen in f/u GIB, melana, covid + interval history: no bleeding, no dizziness Physical Exam Vital Signs: Vital Signs: Last Vital Signs Temp 97.5 F 07/21/22 02:42 Pulse 95 07/21/22 05:59 Resp 15 07/21/22 05:59 BP 123/75 07/21/22 05:59 Pulse Ox 96 07/21/22 05:59 O2 Del Method 07/21/22 05:59 BMI result Body Mass Index 29.1 Const: Other: General: AO X 3, no acute distress Resp: CTA bilateral CVS: S1,S2,RRR GI: +BS, NT, no distention Skin: No rash Neuro: motor grossly intact Psych: appropriate affect Objective Data Active Medications Acetaminophen (Acetaminophen 325 Mg Tablet) 650 mg PO Q6H PRN PRN Reason: Pain, Mild (Pain Scale 1-3) Atorvastatin Calcium (Atorvastatin Calcium 80 Mg Tablet) 80 mg PO BEDTIME [facility] Docusate Sodium (Docusate Sodium 100 Mg Capsule) 100 mg PO DAILY PRN PRN Reason: Constipation Lactated Ringer's (Lr) 1,000 mls @ 100 mls/hr IVCONT .Q10H [facility] Last Admin: 07/21/22 01:52 Dose: 100 mls/hr Documented By: YULY Isosorbide Mononitrate (Isosorbide Mononitrate 30 Mg Tab.Er.24h) 30 mg PO DAILY [facility]; Protocol Metoprolol Succinate (Metoprolol Succinate Er 25 Mg Tab.Er.24h) 25 mg PO DAILY [facility]; Protocol Last Admin: 07/21/22 01:52 Dose: 25 mg Documented By: YULY Ondansetron HCl (Ondansetron Hcl 4 Mg/2 Ml Vial) 4 mg IVPUSH Q8H PRN PRN Reason: Nausea and Vomiting Pantoprazole Sodium (Pantoprazole Sodium 40 Mg/10 Ml Vial) 40 mg IVPUSH BID@0630,1630 [facility] Last Admin: 07/21/22 05:52 Dose: 40 mg Documented By: YULY Sodium Chloride (0.9 % Sodium Chloride Flush 3 Ml Syringe) 3 ml IVFLUSH QSHIFT [facility] Last Admin: 07/21/22 01:14 Dose: 3 ml Documented By: YULY Tamsulosin HCl (Tamsulosin Hcl 0.4 Mg Capsule) 0.4 mg PO DAILY [facility] Labs CBC & Chem 7: 07/21/22 10:20 07/21/22 07:00 Labs: Laboratory Results - last 24 hr 07/20/22 07/20/22 07/20/22 19:37 19:37 19:37 MCV 84.8 MCH 26.9 L MCHC 31.8 RDW 14.8 Plt Count 319 MPV 11.3 Immature Gran % (Auto) 3.6 H Neut % (Auto) 71.1 Lymph % (Auto) 12.4 L [place] % (Auto) 11.8 H Eos % (Auto) 0.8 Baso % (Auto) 0.3 Lymph # (Auto) 1.5 [place] # (Auto) 1.5 H Eos # (Auto) 0.1 Baso # (Auto) 0.0 Abs Immat Gran (auto) 0.44 H Absolute Neuts (auto) 8.8 H Absolute Nucleated RBC 0.000 Nucleated RBC % (auto) 0.0 PT 12.6 INR 1.1 Anion Gap 14 Estim Creat Clear Calc 37.5 Estimated GFR 49 Random Glucose 113 Calcium 9.4 Magnesium 1.8 Total Bilirubin 0.8 AST 20 ALT 24 Alkaline Phosphatase 69 Troponin I High Sens Total Protein 6.7 Albumin 3.5 Urine Color Urine Appearance Urine pH Ur Specific [place] Urine Protein Urine Glucose (UA) Urine Ketones Urine Blood Urine Nitrite Ur Leukocyte Esterase Stool Occult Blood Influenza Type A (PCR) Influenza Type B (PCR) RSV RNA Qual (PCR) SARS-CoV-2 RNA (RT-PCR) Blood Type Antibody Screen 07/20/22 07/20/22 07/20/22 19:37 19:37 19:37 MCV MCH MCHC RDW Plt Count MPV Immature Gran % (Auto) Neut % (Auto) Lymph % (Auto) [place] % (Auto) Eos % (Auto) Baso % (Auto) Lymph # (Auto) [place] # (Auto) Eos # (Auto) Baso # (Auto) Abs Immat Gran (auto) Absolute Neuts (auto) Absolute Nucleated RBC Nucleated RBC % (auto) PT INR Anion Gap Estim Creat Clear Calc Estimated GFR Random Glucose Calcium Magnesium Total Bilirubin AST ALT Alkaline Phosphatase Troponin I High Sens 7.0 Total Protein Albumin Urine Color Yellow Urine Appearance Clear Urine pH 5.5 Ur Specific [place] 1.020 Urine Protein Negative Urine Glucose (UA) Negative Urine Ketones Negative Urine Blood Negative Urine Nitrite Negative Ur Leukocyte Esterase Negative Stool Occult Blood Influenza Type A (PCR) NEGATIVE Influenza Type B (PCR) NEGATIVE RSV RNA Qual (PCR) NEGATIVE SARS-CoV-2 RNA (RT-PCR) POSITIVE A Blood Type Antibody Screen 07/20/22 07/20/22 07/21/22 21:47 22:48 00:02 MCV MCH MCHC RDW Plt Count MPV Immature Gran % (Auto) Neut % (Auto) Lymph % (Auto) [place] % (Auto) Eos % (Auto) Baso % (Auto) Lymph # (Auto) [place] # (Auto) Eos # (Auto) Baso # (Auto) Abs Immat Gran (auto) Absolute Neuts (auto) Absolute Nucleated RBC Nucleated RBC % (auto) PT INR Anion Gap 13 Estim Creat Clear Calc 42.9 Estimated GFR 57 Random Glucose 127 H Calcium 9.0 Magnesium Total Bilirubin 0.8 AST 18 ALT 21 Alkaline Phosphatase 64 Troponin I High Sens Total Protein 6.1 L Albumin 3.2 L Urine Color Urine Appearance Urine pH Ur Specific [place] Urine Protein Urine Glucose (UA) Urine Ketones Urine Blood Urine Nitrite Ur Leukocyte Esterase Stool Occult Blood POSITIVE Influenza Type A (PCR) Influenza Type B (PCR) RSV RNA Qual (PCR) SARS-CoV-2 RNA (RT-PCR) Blood Type O Positive Antibody Screen NEGATIVE 07/21/22 07:00 MCV MCH MCHC RDW Plt Count MPV Immature Gran % (Auto) Neut % (Auto) Lymph % (Auto) [place] % (Auto) Eos % (Auto) Baso % (Auto) Lymph # (Auto) [place] # (Auto) Eos # (Auto) Baso # (Auto) Abs Immat Gran (auto) Absolute Neuts (auto) Absolute Nucleated RBC Nucleated RBC % (auto) PT INR Anion Gap 12 Estim Creat Clear Calc 39.0 Estimated GFR 51 Random Glucose 108 Calcium 8.6 Magnesium Total Bilirubin AST ALT Alkaline Phosphatase Troponin I High Sens Total Protein Albumin Urine Color Urine Appearance Urine pH Ur Specific [place] Urine Protein Urine Glucose (UA) Urine Ketones Urine Blood Urine Nitrite Ur Leukocyte Esterase Stool Occult Blood Influenza Type A (PCR) Influenza Type B (PCR) RSV RNA Qual (PCR) SARS-CoV-2 RNA (RT-PCR) Blood Type Antibody Screen Assessment and Plan (1) Melena: Status: Acute (2) Dizziness: Status: Acute (3) COVID-19 virus infection: Status: Acute Plan 86-year-old male with past medical history of CAD presents to the hospital with complaints of melena found to have positive stool occult as well as COVID-19 infection #? Melana, Acute GI on Brilinta and aspirin for history of? cardiac stent, epigastric pain -Hold Brilanta and ASA -IV PPI -GI to eval for possible EGD -repeat CBC this am #? History of CAD -? reports chronic chest pain no changes -? troponin negative -? continue Imdur -? given? patient's melena will hold aspirin and Brilinta, cardiology consulted for further guidance #? dizziness -? likely multifactorial in the setting of poor oral intake as well as COVID-19 infection and? anemia -? monitor #? COVID-19 infection -? no hypoxia -? monitor respiratory status #? prerenal azotemia -? acute -? likely secondary to dehydration -? will treat with IV fluids -? follow BMP ?DVT prophylaxis: SCDs Need for inaptient: Work up for Acute GIB with symptoms of dizziness Time Spent With Patient Time: Total time managing care of this patient today ____ minutes. Quality Stroke Does the patient have a stroke diagnosis?: No VTE Prior VTE?: No VTE Risk Level:: Medical - moderate - high VTE Device Contraindication: N/A - Device Ordered VTE Drug Contraindication: Treatment Not Indicated
[2022-07-21] MEDS: Tamsulosin HCL 0.4 MG CAPSULE PO (09:18)
[2022-07-21] MEDS: Isosorbide Mononitrate 30 MG TAB.ER.24H PO (09:18)
[2022-07-21 10:30] LABS: Hemoglobin 9.7 g/dl (14.0-18.0); Mean Corpuscular HGB Conc 32.3 g/dl (31.0-36.0); Mean Corpuscular Hemoglobin 27.1 pg (27.0-33.0); Mean Corpuscular Volume 83.8 fL (80.0-98.0); Mean Platelet Volume 11.5 fL (9.4-12.4); Platelet Count 243 X10*3/uL (160-400); Red Blood Count 3.58 X10*6/uL (4.60-5.80); Red Cell Distribution Width 14.8 % (11.0-16.0); White Blood Count 8.7 X10*3/uL (4.8-10.8)
--- NOTE | 2022-07-21 11:14 | PC.NURSE ---
report to same day surgery RN will prepare for procedure
--- NOTE | 2022-07-21 12:04 | PC.NURSE ---
Patient resting comfortably awaiting transport to Endoscopy will CTM
--- NOTE | 2022-07-21 13:53 | P.CONAN_ITS ---
[facility] Active Problems Active Problems: All Active Problems (Updated 07/21/22 @ 01:07 by Hattie Conley MD) Normocytic anemia (Acute) Prerenal azotemia (Acute) Melena (Acute) Dizziness (Acute) COVID-19 virus infection (Acute) Past Medical History Medical History (Updated 07/21/22 @ 01:07 by Hattie Conley MD) CAD (coronary artery disease) Family History Family History (Updated 07/21/22 @ 01:04 by Hattie Conley MD) Other No family history of coronary artery disease Family history of problems with anesthesia: No Surgical History Surgical History (Updated 07/21/22 @ 01:04 by Hattie Conley MD) History of knee replacement History of Problems with Anesthesia: No Social History Social History (Updated 07/21/22 @ 01:04 by Hattie Conley MD) Alcohol intake: never Patient Tobacco Use Status: Never used Tobacco Smoked in Last 30 Days: No Use of substances other than those prescribed or required for medical reasons: No Advance Directives: No Advance Directives Information Provided: No Meds Allergies Allergy/AdvReac Type Severity Reaction Status Date / Time No Known Allergies Allergy Verified 07/20/22 19:15 Active Medications: Current Medications Acetaminophen (Acetaminophen 325 Mg Tablet) 650 mg PO Q6H PRN PRN Reason: Pain, Mild (Pain Scale 1-3) Atorvastatin Calcium (Atorvastatin Calcium 80 Mg Tablet) 80 mg PO BEDTIME RAMILA Docusate Sodium (Docusate Sodium 100 Mg Capsule) 100 mg PO DAILY PRN PRN Reason: Constipation Lactated Ringer's (Lr) 1,000 mls @ 100 mls/hr IVCONT .Q10H RAMILA Last Admin: 07/21/22 11:20 Dose: 100 mls/hr Isosorbide Mononitrate (Isosorbide Mononitrate 30 Mg Tab.Er.24h) 30 mg PO DAILY RAMILA; Protocol Last Admin: 07/21/22 09:18 Dose: 30 mg Metoprolol Succinate (Metoprolol Succinate Er 25 Mg Tab.Er.24h) 25 mg PO DAILY RAMILA; Protocol Last Admin: 07/21/22 01:52 Dose: 25 mg Ondansetron HCl (Ondansetron Hcl 4 Mg/2 Ml Vial) 4 mg IVPUSH Q8H PRN PRN Reason: Nausea and Vomiting Pantoprazole Sodium (Pantoprazole Sodium 40 Mg/10 Ml Vial) 40 mg IVPUSH BID@0630,1630 [facility] Last Admin: 07/21/22 05:52 Dose: 40 mg Sodium Chloride (0.9 % Sodium Chloride Flush 3 Ml Syringe) 3 ml IVFLUSH QSHIFT [facility] Last Admin: 07/21/22 09:45 Dose: 3 ml Tamsulosin HCl (Tamsulosin Hcl 0.4 Mg Capsule) 0.4 mg PO DAILY [facility] Last Admin: 07/21/22 09:18 Dose: 0.4 mg Home Medications Medication Instructions Recorded Confirmed Last Taken Type atorvastatin 80 mg tablet 1 tab PO DAILY 07/20/22 07/20/22 Unknown History isosorbide mononitrate 30 mg 1 tab PO DAILY 07/20/22 07/20/22 Unknown History tablet,extended release 24 hr metoprolol succinate 25 mg 1 tab PO DAILY 07/20/22 07/20/22 Unknown History tablet,extended release 24 hr metoprolol succinate 25 mg 1 tab PO DAILY 07/20/22 07/20/22 Unknown History tablet,extended release 24 hr tamsulosin 0.4 mg capsule 1 cap PO DAILY 07/20/22 07/20/22 Unknown History ticagrelor 90 mg tablet (Brilinta) 1 tab PO BID 07/20/22 07/20/22 Unknown History Exam Exam Date and Time: July 21, 2022 1353 Height,Weight and Vital Signs: Height 5 ft 5 in Weight 79.379 kg Last Vital Signs Temp 97.5 F 07/21/22 02:42 Pulse 83 07/21/22 11:20 Resp 16 07/21/22 11:20 BP 135/98 H 07/21/22 11:20 Pulse Ox 94 07/21/22 11:20 O2 Del Method 07/21/22 11:20 Pertinent Lab Results Pertinent Lab Results: Laboratory Tests 07/20/22 07/20/22 07/20/22 19:37 19:37 19:37 WBC 12.4 H RBC 4.27 L Hgb 11.5 L Hct 36.2 L MCV 84.8 MCH 26.9 L MCHC 31.8 RDW 14.8 Plt Count 319 MPV 11.3 Immature Gran % (Auto) 3.6 H Neut % (Auto) 71.1 Lymph % (Auto) 12.4 L [place] % (Auto) 11.8 H Eos % (Auto) 0.8 Baso % (Auto) 0.3 Lymph # (Auto) 1.5 [place] # (Auto) 1.5 H Eos # (Auto) 0.1 Baso # (Auto) 0.0 Abs Immat Gran (auto) 0.44 H Absolute Neuts (auto) 8.8 H Absolute Nucleated RBC 0.000 Nucleated RBC % (auto) 0.0 PT 12.6 INR 1.1 Sodium 138 Potassium 4.4 Chloride 106 Carbon Dioxide 22 Anion Gap 14 BUN 63 H Creatinine 1.37 Estim Creat Clear Calc 37.5 Estimated GFR 49 Random Glucose 113 Calcium 9.4 Magnesium 1.8 Total Bilirubin 0.8 AST 20 ALT 24 Alkaline Phosphatase 69 Troponin I High Sens Total Protein 6.7 Albumin 3.5 Urine Color Urine Appearance Urine pH Ur Specific [place] Urine Protein Urine Glucose (UA) Urine Ketones Urine Blood Urine Nitrite Ur Leukocyte Esterase Stool Occult Blood Influenza Type A (PCR) Influenza Type B (PCR) RSV RNA Qual (PCR) SARS-CoV-2 RNA (RT-PCR) Blood Type Antibody Screen 07/20/22 07/20/22 07/20/22 19:37 19:37 19:37 WBC RBC Hgb Hct MCV MCH MCHC RDW Plt Count MPV Immature Gran % (Auto) Neut % (Auto) Lymph % (Auto) [place] % (Auto) Eos % (Auto) Baso % (Auto) Lymph # (Auto) [place] # (Auto) Eos # (Auto) Baso # (Auto) Abs Immat Gran (auto) Absolute Neuts (auto) Absolute Nucleated RBC Nucleated RBC % (auto) PT INR Sodium Potassium Chloride Carbon Dioxide Anion Gap BUN Creatinine Estim Creat Clear Calc Estimated GFR Random Glucose Calcium Magnesium Total Bilirubin AST ALT Alkaline Phosphatase Troponin I High Sens 7.0 Total Protein Albumin Urine Color Yellow Urine Appearance Clear Urine pH 5.5 Ur Specific [place] 1.020 Urine Protein Negative Urine Glucose (UA) Negative Urine Ketones Negative Urine Blood Negative Urine Nitrite Negative Ur Leukocyte Esterase Negative Stool Occult Blood Influenza Type A (PCR) NEGATIVE Influenza Type B (PCR) NEGATIVE RSV RNA Qual (PCR) NEGATIVE SARS-CoV-2 RNA (RT-PCR) POSITIVE A Blood Type Antibody Screen 07/20/22 07/20/22 07/21/22 21:47 22:48 00:02 WBC RBC Hgb Hct MCV MCH MCHC RDW Plt Count MPV Immature Gran % (Auto) Neut % (Auto) Lymph % (Auto) [place] % (Auto) Eos % (Auto) Baso % (Auto) Lymph # (Auto) [place] # (Auto) Eos # (Auto) Baso # (Auto) Abs Immat Gran (auto) Absolute Neuts (auto) Absolute Nucleated RBC Nucleated RBC % (auto) PT INR Sodium 138 Potassium 4.0 Chloride 108 Carbon Dioxide 21 L Anion Gap 13 BUN 66 H Creatinine 1.20 Estim Creat Clear Calc 42.9 Estimated GFR 57 Random Glucose 127 H Calcium 9.0 Magnesium Total Bilirubin 0.8 AST 18 ALT 21 Alkaline Phosphatase 64 Troponin I High Sens Total Protein 6.1 L Albumin 3.2 L Urine Color Urine Appearance Urine pH Ur Specific [place] Urine Protein Urine Glucose (UA) Urine Ketones Urine Blood Urine Nitrite Ur Leukocyte Esterase Stool Occult Blood POSITIVE Influenza Type A (PCR) Influenza Type B (PCR) RSV RNA Qual (PCR) SARS-CoV-2 RNA (RT-PCR) Blood Type O Positive Antibody Screen NEGATIVE 07/21/22 07/21/22 07:00 10:20 WBC 8.7 RBC 3.58 L Hgb 9.7 L Hct 30.0 L MCV 83.8 MCH 27.1 MCHC 32.3 RDW 14.8 Plt Count 243 MPV 11.5 Immature Gran % (Auto) Neut % (Auto) Lymph % (Auto) [place] % (Auto) Eos % (Auto) Baso % (Auto) Lymph # (Auto) [place] # (Auto) Eos # (Auto) Baso # (Auto) Abs Immat Gran (auto) Absolute Neuts (auto) Absolute Nucleated RBC 0.000 Nucleated RBC % (auto) 0.0 PT INR Sodium 140 Potassium 4.1 Chloride 110 H Carbon Dioxide 22 Anion Gap 12 BUN 64 H Creatinine 1.32 Estim Creat Clear Calc 39.0 Estimated GFR 51 Random Glucose 108 Calcium 8.6 Magnesium Total Bilirubin AST ALT Alkaline Phosphatase Troponin I High Sens Total Protein Albumin Urine Color Urine Appearance Urine pH Ur Specific [place] Urine Protein Urine Glucose (UA) Urine Ketones Urine Blood Urine Nitrite Ur Leukocyte Esterase Stool Occult Blood Influenza Type A (PCR) Influenza Type B (PCR) RSV RNA Qual (PCR) SARS-CoV-2 RNA (RT-PCR) Blood Type Antibody Screen Airway Mallampati Class: II TM Dist: >3cm Neck ROM: Full Loose/Missing/Broken Teeth: No Heart: rrr Lungs: clear Assessment and Plan Final Anesthetic Review Family History of Problems with Anesthesia: No History of Problems with Anesthesia: No ASA Class: II and Emergency Final Preanesthetic Review: No Changes in Pt Med Stat, Meds/Allgs Chart Reviewed, Consent Obtained/Reviewed and Anes Risks/Benef Reviewed Patient Risk: Intermediate Procedure Risk: Low Anesthetic Plan Anesthetic Plan: MAC: Disposition: Standard PACU
--- NOTE | 2022-07-21 14:15 | PM.EVENT ---
Event Note Date of Service: 07/21/22 Event Note: GI consult dictated EGD today for further evaluation of melena. He is aware of risks and benefits and agrees to proceed. Time Spent With Patient Time: Total time managing care of this patient today ____ minutes.
--- NOTE | 2022-07-21 14:27 | MHC.CM.PN ---
called and spoke with pts who explain that they are independent and do not expect to need services when dcd pt is chaimid vax x 3 dc plan home no services
--- NOTE | 2022-07-21 15:48 | PM.EVENT ---
Event Note Date of Service: 07/21/22 Event Note: EGD active bleeding from small duodenal ulcer, treated with epinephrine and gold probe cautery. antral biopsies obtained. distal erosive esophagitis. rec start clear liquids advance diet in am if hct stable limit antiplatelets as per cardiology cont iv ppi. Time Spent With Patient Time: Total time managing care of this patient today ____ minutes.
[2022-07-21] MEDS: Atorvastatin Calcium 80 MG TABLET PO (21:04)
[2022-07-21] MEDS: Melatonin 3 MG TABLET 6 MG PO (21:13)
--- NOTE | 2022-07-21 21:22 | CONS_ITS ---
DATE OF SERVICE: 07/21/2022 REFERRING PHYSICIAN: Carlyle Valdez MD REASON FOR CONSULTATION: Black stools and anemia. HISTORY OF PRESENT ILLNESS: The patient is a pleasant 86-year-old man who was admitted to the hospital after presenting to the emergency room with black stools and symptoms of dizziness. Symptoms began over the week prior to admission and black stools were noted approximately 3 days ago. He has associated epigastric discomfort and heartburn for which he has been using [id number] antacids. He was also complaining of dizziness and lightheadedness. He was evaluated in the emergency department with a lab work which showed a hematocrit of 36.2. He is on Brilinta and aspirin because of cardiac history with stent placement. He denies any prior history of upper GI issues. There is no family history of stomach cancer and he does not take excessive amounts of NSAIDs or drink alcohol to excess. He was treated with IV proton pump inhibitors and admitted to the hospital overnight. His hematocrit dropped from 36 to 30.0, and he did not require blood transfusion. He reports his last bowel movements this morning was still black. PAST MEDICAL HISTORY: Coronary artery disease with history of stent placement, most recently in October 2021. He denies other medical illnesses. He has had a knee replacement. CURRENT MEDICATIONS: His current medication list is reviewed in the chart. ALLERGIES: THERE ARE NONE REPORTED. FAMILY HISTORY: This is reviewed with the patient and is negative for upper GI tract malignancy. SOCIAL HISTORY: He denies tobacco, alcohol, and substance abuse. REVIEW OF SYSTEMS: SKIN: No pruritus. HEENT: Negative. CARDIOPULMONARY: No shortness of breath or chest pain currently. GASTROINTESTINAL: As above. He has never undergone colonoscopy. GENITOURINARY: Negative. NEUROPSYCHIATRIC: Negative. PHYSICAL EXAMINATION: GENERAL: Shows a pleasant, well-appearing male. VITAL SIGNS: Reviewed in the electronic medical record and are stable. He has had no tachycardia or hypotension. SKIN: Anicteric. HEENT: Shows no scleral icterus. NECK: Without lymphadenopathy or thyromegaly. LUNGS: Clear. HEART: Shows a regular rate and rhythm. S1, S2. No murmur. ABDOMEN: Soft without focal masses or tenderness. Bowel sounds are present. No organomegaly is noted. EXTREMITIES: Without edema. LABORATORY STUDIES: Reviewed. His COVID-19 test was positive and he does report a cough at home, but no shortness of breath currently. IMPRESSION: Melena in a patient on aspirin and Brilinta for cardiac issues. The differential diagnosis for this includes peptic ulcer disease, erosive esophagitis, AVMs and gastric tumors or masses. I would recommend further evaluation with upper endoscopy as he will need to be continued on these medications given his stent placement. Cardiology consultation has been obtained. I have discussed risks and benefits of endoscopy with him including the procedure in detail. He understands these and agrees to proceed. This will be arranged shortly. In the interim, I agree with treating him with a proton pump inhibitor and monitoring his hematocrit. MD ELIAZAR Dixon/CARINE / [id number]
--- NOTE | 2022-07-21 21:22 | OP_ITS ---
SURGEON: Bakari Diaz MD INDICATIONS: Upper GI bleeding. PREOPERATIVE DIAGNOSIS: POSTOPERATIVE DIAGNOSIS: PROCEDURE PERFORMED: Upper endoscopy with control of hemorrhage and biopsy. ESTIMATED BLOOD LOSS: COMPLICATIONS: ANESTHESIA: Monitored anesthesia care. ASSISTANTS: SPECIMENS: DESCRIPTION OF PROCEDURE: The procedure was performed on 07/21/2022. A history and physical performed. The risks and benefits of the procedure were explained to the patient and informed consent was obtained. The patient was placed in a left lateral decubitus position. The Olympus video gastroscope was introduced into the esophagus, stomach, and duodenum. Examination was performed. The scope was removed. He tolerated the procedure well and was taken to recovery in stable condition. FINDINGS: Esophagus: There was erosive esophagitis with no bleeding present over the last 1-2 cm of the esophagus. Stomach: The stomach showed no evidence of masses, ulcers, or polyps. There was old blood in the stomach. Antral biopsies were obtained. Duodenum: There was an active bleeding site identified in the second portion just after the junction of the bulb and second portion. This was a small 8 to 10 mm ulceration with adherent clot and fresh red pulsatile blood. The hemostasis was achieved with injection of 3 cc of epinephrine (1:10,000) and cauterization using the gold probe. [address] an endoscopic hemostatic clip were unsuccessful due to the location of the lesion just beyond the junction of the bulb and second portion and further attempts were not made. There was adequate hemostasis during the whole procedure, which lasted approximately 35 minutes. Remainder of the second portion appeared normal. IMPRESSION: 1. Duodenal ulcer with active bleeding as above. 2. Erosive esophagitis. RECOMMENDATION: 1. Monitor hematocrit. 2. Continue IV proton pump inhibitor. 3. Limit anti-platelet medications as possible per Cardiology. 4. Follow up the biopsy results. MD ELIAZAR Dixon/CARINE / [id number]
[2022-07-22] VITALS (14 sets, daily range): BP systolic 102–136; BP diastolic 49–68; PULSE 72–86; RESP 16–18; TEMP 36.3–36.9; O2SAT 95–97
[2022-07-22 00:29] LABS: Hematocrit 24.5 % (42.0-52.0); Hemoglobin 8.1 g/dl (14.0-18.0); Mean Corpuscular HGB Conc 33.1 g/dl (31.0-36.0); Mean Corpuscular Hemoglobin 27.6 pg (27.0-33.0); Mean Corpuscular Volume 83.6 fL (80.0-98.0); Mean Platelet Volume 11.3 fL (9.4-12.4); Platelet Count 229 X10*3/uL (160-400); Red Blood Count 2.93 X10*6/uL (4.60-5.80); Red Cell Distribution Width 14.9 % (11.0-16.0); White Blood Count 7.7 X10*3/uL (4.8-10.8)
[2022-07-22 05:56] LABS: Hematocrit 23.5 % (42.0-52.0); Hemoglobin 7.5 g/dl (14.0-18.0); Mean Corpuscular HGB Conc 31.9 g/dl (31.0-36.0); Mean Corpuscular Hemoglobin 26.9 pg (27.0-33.0); Mean Corpuscular Volume 84.2 fL (80.0-98.0); Mean Platelet Volume 11.4 fL (9.4-12.4); Platelet Count 212 X10*3/uL (160-400); Red Blood Count 2.79 X10*6/uL (4.60-5.80); White Blood Count 6.8 X10*3/uL (4.8-10.8)
[2022-07-22] MEDS: Pantoprazole Sodium 40 MG/10 ML VIAL IVPUSH ×2 (06:01→16:47)
[2022-07-22] MEDS: Lactated Ringers 1,000 ML 100 ML IVCONT (06:02)
--- NOTE | 2022-07-22 07:40 | P.PNIM_ITS ---
Subjective Subjective Date of Service: 07/23/22 Interval History: Seen in f/u GIB, melana, covid + interval history: no bleeding, no dizziness, EGD bleeding duodnal ulcer, H/H lower today, Review of Systems no chest pain no dizziness no sob Physical Exam Vital Signs: Vital Signs: Last Vital Signs Temp 98.3 F 07/22/22 03:22 Pulse 82 07/22/22 03:22 Resp 16 07/22/22 03:22 BP 102/51 L 07/22/22 03:22 Pulse Ox 96 07/22/22 03:22 O2 Del Method 07/22/22 03:22 BMI result Body Mass Index 29.1 Const: Other: General: AO X 3, no acute distress Resp: CTA bilateral CVS: S1,S2,RRR GI: +BS, NT, no distention Skin: No rash Neuro: motor grossly intact Psych: appropriate affect Objective Data Active Medications Acetaminophen (Acetaminophen 325 Mg Tablet) 650 mg PO Q6H PRN PRN Reason: Pain, Mild (Pain Scale 1-3) Atorvastatin Calcium (Atorvastatin Calcium 80 Mg Tablet) 80 mg PO BEDTIME [facility] Last Admin: 07/21/22 21:04 Dose: 80 mg Documented By: DUNCAN Docusate Sodium (Docusate Sodium 100 Mg Capsule) 100 mg PO DAILY PRN PRN Reason: Constipation Lactated Ringer's (Lr) 1,000 mls @ 100 mls/hr IVCONT .Q10H [facility]ILA Last Admin: 07/22/22 06:02 Dose: 100 mls/hr Documented By: DUNCAN Isosorbide Mononitrate (Isosorbide Mononitrate 30 Mg Tab.Er.24h) 30 mg PO DAILY [facility]; Protocol Last Admin: 07/21/22 09:18 Dose: 30 mg Documented By: ALESIA Melatonin (Melatonin 3 Mg Tablet) 6 mg PO BEDTIME PRN PRN Reason: Insomnia Last Admin: 07/21/22 21:13 Dose: 6 mg Documented By: DUNCAN Metoprolol Succinate (Metoprolol Succinate Er 25 Mg Tab.Er.24h) 25 mg PO DAILY [facility]; Protocol Last Admin: 07/21/22 01:52 Dose: 25 mg Documented By: YULY Ondansetron HCl (Ondansetron Hcl 4 Mg/2 Ml Vial) 4 mg IVPUSH Q8H PRN PRN Reason: Nausea and Vomiting Pantoprazole Sodium (Pantoprazole Sodium 40 Mg/10 Ml Vial) 40 mg IVPUSH BID@0630,1630 [facility] Last Admin: 07/22/22 06:01 Dose: 40 mg Documented By: DUNCAN Sodium Chloride (0.9 % Sodium Chloride Flush 3 Ml Syringe) 3 ml IVFLUSH QSHIFT [facility] Last Admin: 07/21/22 21:05 Dose: 3 ml Documented By: DUNCAN Tamsulosin HCl (Tamsulosin Hcl 0.4 Mg Capsule) 0.4 mg PO DAILY [facility] Last Admin: 07/21/22 09:18 Dose: 0.4 mg Documented By: ALESIA Labs CBC & Chem 7: 07/23/22 06:00 07/21/22 07:00 Labs: Laboratory Results - last 24 hr 07/21/22 07/21/22 07/22/22 07:00 10:20 00:15 MCV 83.8 83.6 MCH 27.1 27.6 MCHC 32.3 33.1 RDW 14.8 14.9 Plt Count 243 229 MPV 11.5 11.3 Absolute Nucleated RBC 0.000 0.000 Nucleated RBC % (auto) 0.0 0.0 Anion Gap 12 Estim Creat Clear Calc 39.0 Estimated GFR 51 Random Glucose 108 Calcium 8.6 07/22/22 05:49 MCV 84.2 MCH 26.9 L MCHC 31.9 RDW 15.0 Plt Count 212 MPV 11.4 Absolute Nucleated RBC 0.000 Nucleated RBC % (auto) 0.0 Anion Gap Estim Creat Clear Calc Estimated GFR Random Glucose Calcium Assessment and Plan (1) Melena: Status: Acute (2) Dizziness: Status: Acute (3) COVID-19 virus infection: Status: Acute Plan 86-year-old male with past medical history of CAD presents to the hospital with complaints of melena found to have positive stool occult as well as COVID-19 in fection #? Melana, Acute GI, acute blood loss anemia on Brilinta and aspirin for history of? cardiac stent, epigastric pain -H/H droped from 36 to 23 today -s/p EGD 07/21 --active bleeding from small duodenal ulcer,treated with epinephrine and gold probe cautery. -Transfuse 2 units -continue holding Brilanta and ASA -IV PPI -ask cardiology if dual antiplatlets still warranted stent put in october 2021 -liquid diet to start #? History of CAD--no evidence of ACS at this time, hold ASA, Brilanta as above #? dizziness -? likely multifactorial in the setting of poor oral intake as well as COVID-19 infection and? anemia--resolved. -? monitor #? COVID-19 infection -? no hypoxia -? monitor respiratory status #? prerenal azotemia -? acute -? likely secondary to dehydration -? will treat with IV fluids -? follow BMP ?DVT prophylaxis: SCDs Need for inaptient: Work up and treatment for for Acute GIB with symptoms of dizziness Time Spent With Patient Time: Total time managing care of this patient today ____ minutes. Quality Stroke Does the patient have a stroke diagnosis?: No VTE Prior VTE?: No VTE Risk Level:: Medical - moderate - high VTE Device Contraindication: N/A - Device Ordered VTE Drug Contraindication: Treatment Not Indicated
[2022-07-22] MEDS: Tamsulosin HCL 0.4 MG CAPSULE PO (09:15)
[2022-07-22] MEDS: 0.9 % Sodium Chloride Flush 3 ML SYRINGE IVFLUSH ×2 (09:16→19:48)
[2022-07-22] MEDS: Isosorbide Mononitrate 30 MG TAB.ER.24H PO (09:16)
[2022-07-22] MEDS: Metoprolol Succinate ER 25 MG TAB.ER.24H PO (09:16)
--- NOTE | 2022-07-22 10:16 | HO.POSTANES ---
Post Anesthesia Evaluation Post Anesthesia Evaluation Vital Signs: Vital Signs Temp Pulse Resp BP Pulse Ox O2 Del Method 07/22/22 08:00 97.4 F 82 16 136/57 L 96 Room Air 07/22/22 03:22 98.3 F 82 16 102/51 L 96 Room Air 07/21/22 23:24 97.8 F 86 15 113/53 L 93 Room Air Anesthesia: Monitored Mental Status: Awake Pain Control: Satisfactory Nausea/Vomiting: None Hydration: Adequate Anesthesia-Related Issues: No Anes. Related Issues
--- NOTE | 2022-07-22 10:25 | PM.CNCAR ---
History of Present Illness History of Present Illness Date of Service: 07/22/22 Chief complaint: melena Narrative: This is a cardiology consultation regarding antiplatelet management and history of GI bleeding. Patient has history of coronary disease, LAD stenting. In October, he also underwent stenting of the RCA as well as circumflex/OM. He is maintained on aspirin and Brilinta. Currently, admitted for gastrointestinal bleeding. He underwent endoscopy and that shows duodenal ulcer. Hence as a question of which antiplatelet drugs could be stopped. Patient himself states he has been doing fairly well from cardiac without any recurrent anginal type symptoms. Review of Systems Review of Systems: Yes all other systems are reviewed and are negative Constitutional: Constitutional: Reports as per HPI Eyes: Eyes: Reports as per HPI ENT: Reports as per HPI Cardiovascular: Cardiovascular: Reports as per HPI, Denies acrocyanosis, Denies cool extremities, Denies chest pain, Denies leg edema, Denies lightheadedness, Denies palpitations and Denies dyspnea Respiratory: Respiratory: Reports as per HPI, Reports no additional respiratory complaints and Denies dyspnea Gastrointestinal: Gastrointestinal: Reports as per HPI and Reports no additional gastrointestinal complaints Genitourinary: Genitourinary: Reports no additional male genitourinary complaints and Reports as per HPI Musculoskeletal: Musculoskeletal: Reports no additional musculoskeletal complaints and Reports as per HPI Integumentary/Breasts: Skin/Breast: Reports system reviewed and no additional complaints, except as docu Neurologic: Reports system reviewed and no additional complaints, except as documented and Reports as per HPI Psychiatric: Psychiatric: Reports no additional psychiatric complaints and Reports as per HPI Endocrine: Endocrine: Reports no additional endocrine complaints, Reports as per HPI and Denies palpitations Hematologic/Lymphatic: Hematologic/Lymphatic: Reports no additional hematologic/lymphatic complaints and Reports as per HPI Allergic/Immunologic: Allergic/Immunologic: Reports no additional allergic/immunologic complaints and Reports as per HPI PMF Past Medical History Medical History (Updated 07/22/22 @ 10:33 by Bridger Blackburn MD) CAD (coronary artery disease) Family History Family History (Updated 07/21/22 @ 01:04 by Hattie Conley MD) Other No family history of coronary artery disease Pertinent family history: Denies any major medical issues in any family member. Surgical History Surgical History (Updated 07/22/22 @ 10:33 by Bridger Blackburn MD) History of knee replacement Social History Social History (Updated 07/21/22 @ 01:04 by Hattie Conley MD) Household Members: Spouse Housing: House Do you presently have visiting nurse or other home services: No Alcohol intake: never Patient Tobacco Use Status: Never used Tobacco service: No Meds Allergies Allergy/AdvReac Type Severity Reaction Status Date / Time No Known Allergies Allergy Verified 07/20/22 19:15 Active Medications: Current Medications Acetaminophen (Acetaminophen 325 Mg Tablet) 650 mg PO Q6H PRN PRN Reason: Pain, Mild (Pain Scale 1-3) Atorvastatin Calcium (Atorvastatin Calcium 80 Mg Tablet) 80 mg PO BEDTIME REPLACED BY [facility] Last Admin: 07/21/22 21:04 Dose: 80 mg Docusate Sodium (Docusate Sodium 100 Mg Capsule) 100 mg PO DAILY PRN PRN Reason: Constipation Lactated Ringer's (Lr) 1,000 mls @ 100 mls/hr IVCONT .Q10H REPLACED BY [facility] Last Admin: 07/22/22 06:02 Dose: 100 mls/hr Isosorbide Mononitrate (Isosorbide Mononitrate 30 Mg Tab.Er.24h) 30 mg PO DAILY REPLACED BY [facility]; Protocol Last Admin: 07/22/22 09:16 Dose: 30 mg Melatonin (Melatonin 3 Mg Tablet) 6 mg PO BEDTIME PRN PRN Reason: Insomnia Last Admin: 07/21/22 21:13 Dose: 6 mg Metoprolol Succinate (Metoprolol Succinate Er 25 Mg Tab.Er.24h) 25 mg PO DAILY REPLACED BY [facility]; Protocol Last Admin: 07/22/22 09:16 Dose: 25 mg Ondansetron HCl (Ondansetron Hcl 4 Mg/2 Ml Vial) 4 mg IVPUSH Q8H PRN PRN Reason: Nausea and Vomiting Pantoprazole Sodium (Pantoprazole Sodium 40 Mg/10 Ml Vial) 40 mg IVPUSH BID@0630,1630 REPLACED BY [facility] Last Admin: 07/22/22 06:01 Dose: 40 mg Sodium Chloride (0.9 % Sodium Chloride Flush 3 Ml Syringe) 3 ml IVFLUSH QSHIFT REPLACED BY [facility] Last Admin: 07/22/22 09:16 Dose: 3 ml Tamsulosin HCl (Tamsulosin Hcl 0.4 Mg Capsule) 0.4 mg PO DAILY REPLACED BY [facility] Last Admin: 07/22/22 09:15 Dose: 0.4 mg Home Medications Medication Instructions Recorded Confirmed Last Taken Type atorvastatin 80 mg tablet 1 tab PO DAILY 07/20/22 07/20/22 Unknown History isosorbide mononitrate 30 mg 1 tab PO DAILY 07/20/22 07/20/22 Unknown History tablet,extended release 24 hr metoprolol succinate 25 mg 1 tab PO DAILY 07/20/22 07/20/22 Unknown History tablet,extended release 24 hr metoprolol succinate 25 mg 1 tab PO DAILY 07/20/22 07/20/22 Unknown History tablet,extended release 24 hr tamsulosin 0.4 mg capsule 1 cap PO DAILY 07/20/22 07/20/22 Unknown History ticagrelor 90 mg tablet (Brilinta) 1 tab PO BID 07/20/22 07/20/22 Unknown History Physical Exam Vital Signs: Vital Signs: Last Vital Signs Temp 97.4 F 07/22/22 08:00 Pulse 82 07/22/22 08:00 Resp 16 07/22/22 08:00 BP 136/57 L 07/22/22 08:00 Pulse Ox 96 07/22/22 08:00 O2 Del Method 07/22/22 08:00 BMI result Body Mass Index 29.1 Const: General: comfortable and no acute distress Orientation/consciousness: patient oriented x3 HEENT: Other: Unremarkable Head: Yes normal to inspection Neck: Neck: Yes normal visual inspection Chest: Chest palpation & inspection: normal inspection of the chest Resp: Auscultation: clear to auscultation bilaterally Cardio: Palpation: normal PMI Heart sounds: S1 normal heart sound present, S2 normal heart sound present, no gallops, no murmurs and no rubs GI: Palpation (GI): Soft to palpation Back/Spine/Pelvis: Other: unremarkable Skin: General skin exam: no rashes or lesions noted Neuro: General: patient oriented x3 Extrem: General: Yes normal to inspection Psych: Mental Status: mental status grossly normal Objective Labs and Meds Result diagrams: 07/22/22 05:49 07/21/22 07:00 Lab results: Laboratory Results - last 24 hr 07/20/22 07/21/22 07/22/22 22:48 10:20 00:15 WBC 8.7 7.7 RBC 3.58 L 2.93 L Hgb 9.7 L 8.1 L Hct 30.0 L 24.5 L MCV 83.8 83.6 MCH 27.1 27.6 MCHC 32.3 33.1 RDW 14.8 14.9 Plt Count 243 229 MPV 11.5 11.3 Absolute Nucleated RBC 0.000 0.000 Nucleated RBC % (auto) 0.0 0.0 Blood Type O Positive Antibody Screen NEGATIVE Crossmatch See Detail 07/22/22 05:49 WBC 6.8 RBC 2.79 L Hgb 7.5 L Hct 23.5 L MCV 84.2 MCH 26.9 L MCHC 31.9 RDW 15.0 Plt Count 212 MPV 11.4 Absolute Nucleated RBC 0.000 Nucleated RBC % (auto) 0.0 Blood Type Antibody Screen Crossmatch Assessment and Plan (1) Atherosclerotic cardiovascular disease: Status: Acute (2) Stented coronary artery: Status: Acute (3) Duodenal ulcer: Status: Acute (4) Gastrointestinal bleeding, upper: Status: Acute Plan Labs reviewed. When he 1st came in hemoglobin was 11.5. Now it is 7.5. High sensitivity troponin within normal limits. Endoscopy had revealed duodenal ulcer with active bleeding. Erosive esophagitis. Discussed with Dr. Akbar, who to the interventions on patient. According to him, Brilinta can be stopped permanently. His advise was to continue aspirin if able. Will need to discuss with GI if it is acceptable are not. If not, then probably hold aspirin for few days till the GI issue resolves and then resume baby aspirin. Concurrent PPI use. Also consider blood transfusion. Discussed with Dr. Valdez. Time Spent With Patient Time: Total time managing care of this patient today 70 minutes. Procedures Date of Service Date of Service: 07/22/22
--- NOTE | 2022-07-22 17:31 | PM.GIPN ---
Subjective Subjective Date of Service: 07/22/22 Interval History: no melena today Critical Care Time (minutes): 0 Physical Exam Vital Signs: Vital Signs: Last Vital Signs Temp 98.3 F 07/22/22 17:29 Pulse 82 07/22/22 17:29 Resp 18 07/22/22 17:29 BP 119/51 L 07/22/22 17:29 Pulse Ox 96 07/22/22 17:15 O2 Del Method 07/22/22 17:15 BMI result Body Mass Index 29.1 GI: Other: abdomen is soft and nontender Objective Data Labs CBC & Chem 7: 07/22/22 05:49 07/21/22 07:00 Labs: Laboratory Results - last 24 hr 07/20/22 07/22/22 07/22/22 22:48 00:15 05:49 WBC 7.7 6.8 RBC 2.93 L 2.79 L Hgb 8.1 L 7.5 L Hct 24.5 L 23.5 L MCV 83.6 84.2 MCH 27.6 26.9 L MCHC 33.1 31.9 RDW 14.9 15.0 Plt Count 229 212 MPV 11.3 11.4 Absolute Nucleated RBC 0.000 0.000 Nucleated RBC % (auto) 0.0 0.0 Blood Type O Positive Antibody Screen NEGATIVE Crossmatch See Detail Procedures Date of Service Date of Service: 07/22/22 Progress Note: A&P Assessment and plan (1) Gastrointestinal bleeding, upper: Status: Acute Plan hematocrit stable overnight agree with transfusion rec hold asa as long as possible and restart with enteric coated. Time Spent With Patient Time: Total time managing care of this patient today ____ minutes. Quality Stroke Does the patient have a stroke diagnosis?: No VTE Prior VTE?: No VTE Risk Level:: Medical - moderate - high VTE Device Contraindication: N/A - Device Ordered VTE Drug Contraindication: Treatment Not Indicated
--- NOTE | 2022-07-22 18:19 | PC.NURSE ---
Transfusion of 1 Unit PRBC began at 12:18. 15 minutes into the transfusion, the patient's vitals were as follows. 98.3F. 86, 16, 109/68. The pt denied any chills, pain, or other adverse reactions. The infusion ended at 15:48 when all 350 mL of PRBCs were transfused. Ending vitals were as follows: 98.3,85, 16, 124/58
[2022-07-22] MEDS: Atorvastatin Calcium 80 MG TABLET PO (19:48)
[2022-07-23] VITALS: BP 123/60; PULSE 81; RESP 20; TEMP 36.7; O2SAT 93
[2022-07-23 04:00] VITALS: BP 118/59; PULSE 80; RESP 20; TEMP 37.1; O2SAT 94
[2022-07-23] MEDS: Pantoprazole Sodium 40 MG/10 ML VIAL IVPUSH (05:46)
[2022-07-23 06:24] LABS: Hematocrit 29.1 % (42.0-52.0); Hemoglobin 9.5 g/dl (14.0-18.0); Mean Corpuscular HGB Conc 32.6 g/dl (31.0-36.0); Mean Corpuscular Hemoglobin 27.9 pg (27.0-33.0); Mean Corpuscular Volume 85.6 fL (80.0-98.0); Mean Platelet Volume 11.6 fL (9.4-12.4); Platelet Count 197 X10*3/uL (160-400); Red Cell Distribution Width 15.5 % (11.0-16.0); White Blood Count 7.8 X10*3/uL (4.8-10.8)
[2022-07-23 08:00] VITALS: BP 116/58; PULSE 77; RESP 20; TEMP 36.6; O2SAT 97
[2022-07-23] MEDS: Tamsulosin HCL 0.4 MG CAPSULE PO (09:16)
[2022-07-23] MEDS: Isosorbide Mononitrate 30 MG TAB.ER.24H PO (09:16)
[2022-07-23] MEDS: 0.9 % Sodium Chloride Flush 3 ML SYRINGE IVFLUSH (09:17)
[2022-07-23] MEDS: Metoprolol Succinate ER 25 MG TAB.ER.24H PO (09:17)
[2022-07-23 10:56] VITALS: BP 103/66; PULSE 79; RESP 20; TEMP 36.8; O2SAT 95
--- NOTE | 2022-07-23 10:58 | PM.DS ---
DS: Providers Provider Date of Service: 07/23/22 Date of admission: 07/20/22 23:02 Primary care physician: Nonstaff Physician Consults: 07/20/22 23:05 Consult to Gastroenterology Routine Consulting Provider: Alexy Chiang Reason for consultation: GI bleed Has provider been notified: No 07/22/22 10:11 Consult to Cardiology Routine Consulting Provider: Bridger Blackburn Reason for consultation: CAD stent now gib Has provider been notified: Yes DS: Diagnosis Discharge Diagnosis (1) Melena: Status: Acute (2) Dizziness: Status: Acute (3) COVID-19 virus infection: Status: Acute DS: Summary Hospital Course Hospital Course: Chief Complaint:? melena ?86-year-old male with past medical history of CAD recently treated with stents in October of 2021,? on aspirin and Brilinta,presents to the hospital with multiple episodes of melena.? Patient reports that for the past few days he has been feeling dizzy, feeling lightheaded on his feet, losing his balance, ? Has loss of appetite,? has burning sensation in the stomach,and noticed multiple episodes of black stools. patient reports? a productive cough with no shortness of breath, he has no abdominal pain, no nausea or vomiting, no diarrhea, no urinary symptoms and no lower extremity edema.? ? She ?reports chronic chest? pain that has not been worse recently. ?on arrival to the ED patient hemodynamically stable with no significant abnormal vitals Labs are significant for WBC count of 12.4, hemoglobin of 11.5, hematocrit 36.2, BUN of 63, creatinine of 1.37, UA negative, stool occult blood positive, COVID-19 ? Positive.? Abdomen pelvic CT shows no acute? 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 Brilinta and aspirin for history of? cardiac stent, epigastric pain. -H/H droped from 36 on admission to 23 on 07/22 and. -s/p EGD on 07/[address] Diaz and noted to have active bleeding from small duodenal ulcer,treated with epinephrine and gold probe cautery. He was transfused 2 units of RBCs on 07/22, Hct on 07/23 post transfusion 29 and no sings of bleeding. Patient's supervisor hydrochloric area recommend permanently stopping brilanta and to continue Aspirin when ok with GI, Dr. Diaz recommends restarting 3 days post EGD and to take enteric coated baby aspirin.. To afshin Prilosec 40 mg BID for Duodnal ulcer #? History of CAD--no evidence of ACS at this time, hold ASA, Brilanta as above #? dizziness -? likely multifactorial in the setting of poor oral intake as well as COVID-19 infection and? anemia--resolved. -? monitor #? COVID-19 infection--assymptoamtic and didn't need treatment, to follow isolation guideline -? no hypoxia -? monitor respiratory status #?Pre renal azotemia, resolved Time Spent with Patient Time attestation: Total time managing care of this patient today ____ minutes. Discharge coordination time: Greater than 30 minutes Quality: Safe Use of Opioids Does Pt have an Active Cancer Diagnosis on the Problem List?: No Quality: Stroke Does the patient have a stroke diagnosis?: No Physical Exam Vital Signs: Vital Signs: Last Vital Signs Temp 98.2 F 07/23/22 10:56 Pulse 79 07/23/22 10:56 Resp 20 07/23/22 10:56 BP 103/66 07/23/22 10:56 Pulse Ox 95 07/23/22 10:56 O2 Del Method 07/23/22 10:56 BMI result Body Mass Index 29.1 DS: Data Data Completed and Pending Completed studies during hospitalization [Text1]: Pending at discharge 07/21/22 15:44 Surgical [PTH] Routine Labs on day of discharge: Laboratory Results - last 24 hr 07/20/22 07/23/22 22:48 06:00 WBC 7.8 RBC 3.40 L D Hgb 9.5 L D Hct 29.1 L D MCV 85.6 MCH 27.9 MCHC 32.6 RDW 15.5 Plt Count 197 MPV 11.6 Absolute Nucleated RBC 0.000 Nucleated RBC % (auto) 0.0 Blood Type O Positive Antibody Screen NEGATIVE Crossmatch See Detail Discharge Plan Discharge Anticipated Discharge Date/Time: 07/23/22 10:54 Patient Disposition: Home, Self-Care Discharge Diagnosis: Acute blood loss anemia, GI Bleed, Duodnal ulcer Referrals: Physician,Nonstaff [Primary Care Provider] - 1 Week Discharge Medications: New omeprazole 40 mg capsule,delayed release(DR/EC) 40 mg PO BID Qty: 90 0RF Continued atorvastatin 80 mg tablet 1 tab PO DAILY isosorbide mononitrate 30 mg tablet extended release 24 hr 1 tab PO DAILY tamsulosin 0.4 mg capsule 1 cap PO DAILY metoprolol succinate 25 mg tablet extended release 24 hr 1 tab PO DAILY metoprolol succinate 25 mg tablet extended release 24 hr 1 tab PO DAILY Discontinued Brilinta 90 mg tablet 1 tab PO BID Discharge Orders: Discharge Order (Routine); Ordered 07/23/22 Ordered By: Carlyle Valdez Diet: Advance to usual diet Activity on Discharge: As tolerated Stand Alone Forms: Patient Portal Discharge page Care Plan Goals: recovery from anemia, and gi bleeding Health Concerns: GI bleeding, anemia, duodnal ulcer Plan of Treatment: stop taking Brilanta You can start taking baby aspirin (Enteric coated only) tomorrow (wednesday07/24/22) stop if you notice blood in your stool follow up with your heart doctor and your regular doctor in a week, call for appointment Take Prilosec as recommended Assessment: as above
--- NOTE | 2022-07-23 11:26 | MHC.CM.PN ---
IMM 07/21/22 Male 86 is discharged today to home self care. He will receive assistance from family. Family will provide transportation home.
== END 2022-07-23 12:07 | disposition home or self-care (01) | DRG 377 ==
LOC: HO.ED 21:56 → HO.EDOVER 23:16 → HO.IMC 07-21 17:13
PROVIDERS: Internal Medicine Gastroenterology; Physician Assistant Medical; Admitting Provider Internal Medicine; Emergency Provider Emergency Medicine; Visit Provider Internal Medicine
PROC: 0DJ08ZZ Inspection of Upper Intestinal Tract, Via Natural or Artificial Opening Endoscopic (ICD-10-PCS; CPT 43235; principal; 2022-07-21 12:40)
DX: K26.4 Chronic or unspecified duodenal ulcer with hemorrhage (principal); U07.1 COVID-19; K22.10 Ulcer of esophagus without bleeding; D62 Acute posthemorrhagic anemia; I25.10 Atherosclerotic heart disease of native coronary artery without angina pectoris; E86.0 Dehydration; Z95.5 Presence of coronary angioplasty implant and graft; Z79.899 Other long term (current) drug therapy
CPT/HCPCS: 0241U; 36415; 70450; 71046; 72125; 74176; 80048; 80053; 81003; 82272; 83735; 84484; 85025; 85027; 85610; 86850; 86900; 86901; 86923; 88305; 88342; 93005; 96374; 99285; P9016

== ENCOUNTER → 2022-08-06 10:32 | Outpatient (BNVA) | payer MEDICARE, MEDICAID, SELFPAY | PROVIDERS: PCP Internal Medicine; Visit Provider Psychiatry & Neurology Neurology | DX: R20.0 Anesthesia of skin (principal); R20.2 Paresthesia of skin ==

== ENCOUNTER 2023-10-26 12:31 | Outpatient (REF) | payer MEDICARE, MEDICAID, SELFPAY ==
--- NOTE | ~2023-10-26 | XR_ITS ---
EXAMINATION: XR LUMBOSACRAL SPINE WITH OBLIQUES CLINICAL INFORMATION: Spinal stenosis lumbar region without neurogenic claudication. COMPARISON: None available. TECHNIQUE: 4 views of the lumbar spine inclusive of flexion and extension views. FINDINGS: The bones are diffusely demineralized. Degenerative changes in the imaged lower thoracic spine. Dextroscoliosis of the lumbar spine. Degenerative changes in the bilateral sacroiliac joints. Facet arthritis in the ldc-ah-evrem lumbar spine. Advanced lumbar spondylosis with multilevel loss of disc space height and hypertrophic change. Minimal grade 1 retrolisthesis of L1 on L2 and L2 on L3. Mild grade 1 anterolisthesis of L4 on L5. Grade 1 anterolisthesis of L5 on S1. 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
== END 2023-10-26 12:32 | disposition home or self-care (01) ==
LOC: HO.HOSX 12:31
PROVIDERS: Visit Provider Physician Assistant
DX: M48.061 Spinal stenosis, lumbar region without neurogenic claudication (principal)
CPT/HCPCS: 72110; 99202

== ENCOUNTER 2023-10-26 12:31 | Outpatient (AMB) | payer MEDICARE, MEDICAID, SELFPAY ==
--- NOTE | 2023-10-26 12:49 | A.SPINEOV_ITS ---
Intake Intake Visit Reasons: Lumbar stenosis Intake Note: Mr. Hunt is here today c/o Low back pain. 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 He is a very nice 88-year-old gentleman who presents to the office today for evaluation of chronic low back pain with superimposed bilateral leg pain, right greater than left going down into his legs and calves. He has had the symptoms now going on for at least a few months or more. If he is standing and walking he is in severe pain but sitting and lying down his okay. He tried physical therapy, primary care coordinator, but these things have not helped. He briefly trialed some medications including anti-inflammatories and gabapentin but really felt like they were not solving the problem so he did not continue them. He underwent an MRI of the lumbar spine showing a grade 1 spondylolisthesis at L4-5 with severe central canal stenosis amongst other degenerative changes and was sent here today to see us for an evaluation. PMH: Has a history of coronary disease, he underwent a stent a few years ago after a NSTEMI. He is followed by Cardiology at [facility] and he and his tell me that they have been told that his heart is stable and there are no current active issues. He does report occasional shortness of breath. He has a history of renal cell carcinoma which is followed by at [facility]. He was apparently treated with chemotherapy last year and what looks like maybe a cryoablation procedure done by Interventional Radiology. They have been told that the situation with the kidney is stable, the function of the kidney is OK and that this is likely a slow-growing cancer that he is just going to live with but he is not actively going to from it any time soon. His [place] records suggest he has stage 3 chronic kidney disease. History of sleep apnea, knee pain, hypertension, carotid stenosis, venous insufficiency. He denies any history of pulmonary problems, blood clots, bleeding disorders, abdominal surgery, previous spine surgery. Social hx: He does not smoke, drink or use any recreational drugs Medications: Flomax, baby aspirin, metoprolol, Lipitor and gemtessa Allergies: None Physical exam: Elderly gentleman, no acute distress, appears younger than his stated age, he has full strength of bilateral lower extremities with absent reflexes bilaterally at the patella and the Achilles. Imaging review: He has a lumbar MRI done at [facility] in July of 2023 showing severely collapsed disc at L4-5 with grade 1 spondylolisthesis and severe central canal stenosis. He also has moderate stenosis at L3-4. There is m oderate foraminal stenosis at the L5 foramen as well. There are varying degrees of other degenerative arthritic discs throughout the lumbar spine. Impression: 88-year-old gentleman presents to the office today for evaluation of back pain and bilateral lower extremity pain right greater than left in the setting of severe stenosis at L4-5 and grade 1 spondylolisthesis. The patient has been through some basic conservative management without any improvement. I discussed with him that the definitive treatment for this would be surgical intervention. Obviously given his age and his medical comorbidities, we need to proceed with caution. I need to get a set of flexion-extension x-rays so I can understand his bone quality and any signs of dynamic instability before I can give him any kind of surgical opinion. Typically in his age group less is more, so I am hoping a simple decompression would be enough but it will depend on the x-rays and I will need to review all this with Dr. Maxwell before giving him a final answer. Obviously he would need medical clearance as well. The patient also wishes to give this some thought. I will review all of his imaging with Dr. Maxwell, and I will have the patient come back and see me in 6 weeks and re-evaluate. Thank you for allowing us to care for your patient. The total time spent with this visit with this patient was 45 minutes reviewing history, physical exam, lumbar imaging review, and implementation of treatment plan or further diagnostic testing Mendel Maxwell MD,PhD [facility] Orders: Orders XR lumbar spine 4V min Today M48.061 - Spinal stenosis, lumbar region without neurogenic claudication Coding Level of Care Code New Pt Level 4 (49267) Diagnoses Lumbar spinal stenosis M48.061
== END 2023-10-26 13:37 | disposition home or self-care (01) ==
PROVIDERS: Referring Provider Physician Assistant; Visit Provider Physician Assistant
DX: M48.061 Spinal stenosis, lumbar region without neurogenic claudication (principal)
CPT/HCPCS: 99204